=== PATIENT | male | born 1980 | race American Indian/Alaskan Native ===

== ENCOUNTER 2017-03-12 12:22 | Emergency (ER) | payer SELFPAY ==
[2017-03-12 14:11] LABS: Urine Drugs of Abuse Note Disclamer
[2017-03-12 14:24] LABS: Bilirubin,Urine NEG (Negative); Blood,Urine NEG (Negative); Ketones,Urine NEG (Negative); Leukocyte Esterase,Urine NEG (Negative); Mucus,Urine FEW /HPF; Nitrite,Urine NEG (Negative); Urobilinogen,Urine < 2.0 mg/dL (<2.0); WBC,Urine < 1.0 /HPF (0.0-6.0)
[2017-03-12] MEDS ORDERED: MORPHINE IV ONE (14:39)
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
[2017-03-12 15:48] LABS: Basophils % (Auto) 0.6 % (0.0-1.8); Eosinophils % (Auto) 3.5 % (0.0-4.3); Hematocrit 47.3 % (35.5-45.6); Mean Corpuscular HGB Conc 34 % (32-34); Mean Corpuscular Hemoglobin 31 pg (28-32); Mean Corpuscular Volume 92 fl (84-94); Platelet Count 266 K/mm3 (140-440); Red Blood Count 5.15 M/mm3 (3.65-5.03); Red Cell Distribution Width 12.8 % (13.2-15.2); White Blood Count 9.4 K/mm3 (4.5-11.0)
[2017-03-12 15:59] LABS: INR 1.03 (0.87-1.13)
[2017-03-12 16:00] LABS: Partial Thromboplastin Time 32.1 Sec. (24.2-36.6)
[2017-03-12] MEDS ORDERED: NACL ONE (16:05)
[2017-03-12 16:08] LABS: Anion Gap 16 mmol/L; BUN/Creatinine Ratio 16.25; Blood Urea Nitrogen 13 mg/dL (9-20); Calcium 9.1 mg/dL (8.4-10.2); Carbon Dioxide 23 mmol/L (22-30); Chloride 100.3 mmol/L (98-107); Glucose 84 mg/dL (75-100); Potassium 4.1 mmol/L (3.6-5.0); Sodium 135 mmol/L (137-145)
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
[2017-03-12] MEDS ORDERED: PROVENTIL IH ONE (16:52)
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
[2017-03-12 18:33] VITALS: BP 110/74
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
== END 2017-03-12 18:38 | disposition home or self-care (01) ==
LOC: ED 12:22
DX: M79.1 Myalgia (principal); J45.909 Unspecified asthma, uncomplicated; F17.200 Nicotine dependence, unspecified, uncomplicated; Z88.8 Allergy status to other drugs, medicaments and biological substances; Z88.5 Allergy status to narcotic agent; W10.9XXA Fall (on) (from) unspecified stairs and steps, initial encounter; Y93.89 Activity, other specified; Y99.9 Unspecified external cause status; Y92.89 Other specified places as the place of occurrence of the external cause
CPT/HCPCS: 36415; 70450; 71010; 71260; 72125; 74177; 80048; 80307; 81001; 84484; 85025; 85610; 85730; 93005; 93010; 94640; 96374; 99285; J2270; Q9967

== ENCOUNTER 2017-04-24 06:19 | Inpatient (IN) | payer SELFPAY ==
[2017-04-24] MEDS ORDERED: TYLENOL ONE ×2 (06:24→14:10)
[2017-04-24 07:24] LABS: Basophils % (Auto) 0.5 % (0.0-1.8); Hematocrit 46.4 % (35.5-45.6); Hemoglobin 15.4 gm/dl (11.8-15.2); Mean Corpuscular HGB Conc 33 % (32-34); Mean Corpuscular Hemoglobin 31 pg (28-32); Mean Corpuscular Volume 93 fl (84-94); Platelet Count 293 K/mm3 (140-440); Red Blood Count 4.99 M/mm3 (3.65-5.03); Red Cell Distribution Width 12.9 % (13.2-15.2); White Blood Count 11.8 K/mm3 (4.5-11.0)
[2017-04-24 07:32] LABS: INR 0.95 (0.87-1.13)
[2017-04-24 07:34] LABS: Alanine Aminotransferase 20 units/L (7-56); Albumin 4.3 g/dL (3.9-5); Albumin/Globulin Ratio 1.5 %; Alkaline Phosphatase 68 units/L (35-129); Anion Gap 20 mmol/L; Blood Urea Nitrogen 11 mg/dL (9-20); Calcium 9.3 mg/dL (8.4-10.2); Carbon Dioxide 19 mmol/L (22-30); Glucose 102 mg/dL (75-100); Potassium 4.2 mmol/L (3.6-5.0); Sodium 138 mmol/L (137-145); Total Protein 7.2 g/dL (6.3-8.2)
[2017-04-24 07:34] LABS: Bacteria,Urine 1+ /HPF (Negative); Bilirubin,Urine NEG (Negative); Blood,Urine NEG (Negative); Ketones,Urine NEG (Negative); Leukocyte Esterase,Urine NEG (Negative); Mucus,Urine FEW /HPF; Nitrite,Urine NEG (Negative); Protein,Urine <15 mg/dL mg/dL (Negative); Urobilinogen,Urine < 2.0 mg/dL (<2.0)
[2017-04-24] MEDS ORDERED: TYLENOL PO ONE (09:36)
--- NOTE | 2017-04-24 10:01 | XRay Report ---
AP CHEST :04/24/17 06:19:00 CLINICAL: Sepsis. COMPARISON:None. FINDINGS: Normal heart and pulmonary vasculature. The lungs are normally expanded and clear. The bones and soft tissues are normal. IMPRESSION: Normal chest.
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
[2017-04-24] MEDS ORDERED: ROCEPHIN/NS 2 GM/100 ML 2 GM/100 ML BAG IV ONE (11:04)
[2017-04-24] MEDS ORDERED: MORPHINE IV ONE ×2 (11:41→13:24)
[2017-04-24] MEDS ORDERED: ZOFRAN IV ONE (11:41)
--- NOTE | 2017-04-24 12:13 | Cat Scan Report ---
CT HEAD WITHOUT CONTRAST: 04/24/17 06:19:00 CLINICAL: Headache, fever and toothache. TECHNIQUE: 2.5-mm noncontrast scans. COMPARISON:03/12/17 FINDINGS: The ventricles and sulci are normal for age. No abnormal density. No mass or mass effect. No hemorrhage, edema or extra-axial collection. Mild right maxillary sinus mucoperiosteal thickening. Normal orbits and soft tissues. The calvarium and skull base are intact. IMPRESSION: Mild right maxillary sinusitis and otherwise normal.
[2017-04-24] MEDS ORDERED: DILAUDID ONE (13:13)
[2017-04-24] MEDS ORDERED: DILAUDID IV ONE (13:24)
[2017-04-24] MEDS ORDERED: NACL 0.9% 1000 ML 1,000 ML IV ONE (13:25)
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
[2017-04-24] MEDS ORDERED: MILK OF MAGNESIA PO PRN (13:41)
[2017-04-24] MEDS ORDERED: DULCOLAX PR PRN (13:41)
[2017-04-24] MEDS ORDERED: DUONEB 0.5 MG-3 MG/3 ML SOLN IH PRN (13:41)
[2017-04-24] MEDS ORDERED: FLEXERIL PO ONE ×2 (14:03→14:13)
[2017-04-24] MEDS ORDERED: FLEXERIL ONE (14:09)
[2017-04-24] MEDS: TYLENOL PO PRN (14:25)
[2017-04-24] MEDS ORDERED: ZOVIRAX IV SCH (16:00)
[2017-04-24] MEDS ORDERED: VANCOMYCIN PHARMACY TO DOSE IV SCH (16:00)
--- NOTE | 2017-04-24 16:29 | Admit Criteria Form ---
Admission Criteria Documentation: MENINGITIS, BACTERIAL Clinical Indications for Admission to Inpatient Care (Place 'X' for any and all applicable criteria): Admission is indicated for ANY ONE of the following (1)(2)(3)(4)(5): [X ]I. Suspected or proven bacterial meningitis Extended stay beyond goal length of stay may be needed for(13)(14): [ ]a) Bacteremia [ ]b) Persistent fever or neurologic manifestations (eg., altered mental status ) [ ]c) Significant neurologic complications [ ]d) Hemodynamic instability (eg.,sepsis) [ ]e) Significant fluid or electrolyte imbalance [ ]f) Respiratory failure [ ]g) Disseminated intravascular coagulation [ ]h) Acute renal failure [ ]i) Older patients(65 years older) The original [employer] content created by [employer] has been revised. The portions of the content which have been revised are identified through the use of italic text or in bold, and [facility] has neither reviewed nor approved the modified material. All other unmodified content is copyright [employer]. Please see references footnoted in the original [employer] edition 2016 Admission Criteria Met: Yes
[2017-04-24 17:40] LABS: Appearance,CSF TNR
[2017-04-24 17:41] LABS: CSF Diff Status TNR; White Blood Cell,CSF TNR /mm3 (1-10)
[2017-04-24 17:43] LABS: Basophils CSF TNR %; Glucose,CSF TNR mg/dL
[2017-04-24 17:45] LABS: Appearance,CSF Clear
[2017-04-24 17:46] LABS: White Blood Cell,CSF 170 /mm3 (1-10)
[2017-04-24 17:47] LABS: Glucose,CSF 50 mg/dL
[2017-04-24 17:48] LABS: CSF Diff Status Complete
[2017-04-24] MEDS: PERCOCET 5/325 PO PRN (20:49)
[2017-04-24] MEDS: ZOFRAN IV PRN (20:49)
[2017-04-25] MEDS: VANCOMYCIN 1,250 MG in NACL 0.9% 250ML 250 ML IV SCH ×3 (00:47→21:53)
[2017-04-25] MEDS: ROCEPHIN/NS 1 GM/50 ML 1 GM/50 ML BAG IV SCH ×2 (02:40→10:43)
[2017-04-25] MEDS: ZOVIRAX 700 MG in NACL 0.9% 100 ML IV SCH ×5 (03:00→23:03)
[2017-04-25] MEDS: TYLENOL PO PRN (09:47)
[2017-04-25] MEDS: PERCOCET 5/325 PO PRN ×3 (10:40→22:39)
[2017-04-25] MEDS ORDERED: FIORICET PO PRN (14:21)
[2017-04-25 18:19] LABS: HIV-1 Antigen p24 Non React (Non React); HIVR-1/2 Ab Non React (Non React)
--- NOTE | 2017-04-25 18:32 | Progress Note ---
Assessment and Plan 1 Possible viral Meningitis Lumbar Puncture elevated CSF WBC , lymphocyte predominance, follow-up CSF culture Being covered for viral encephalopathy and bacterial meningitis, Started on Acyclovir ,Empiric IV antibiotic started vancomycin and Rocephin Followed blood culture Serial physical exam, Neurology consulted Infectious diseases consulted 2 Sinusitis Patient on IV antibiotic IVF hydration, saline nasal spray as needed 3. Headache Most likely Due to meningitis , treat underlying cause, Tylenol when necessary 4. Cocaine dependence Pt counseled on cessation, risks of continued cocaine abuse including heart attack stroke and sudden where conveyed to the patient. He verbalized understanding. 5. DVT prophylaxis Lovenox Subjective Date of service: 04/25/17 Interval history: Patient has uneventful overnight except headaches. Objective - Constitutional Vitals: Vital Signs - 12hr 04/25/17 07:47 O2 Sat by Pulse 95 Oximetry General appearance: Present: mild distress - EENT Eyes: PERRL ENT: hearing intact - Neck Neck: supple - Respiratory Respiratory effort: normal Respiratory: bilateral: CTA - Breasts Breasts: normal - Cardiovascular Heart rate: 63 Rhythm: regular Heart Sounds: Present: S1 & S2 Extremities: no ischemia - Gastrointestinal General gastrointestinal: Present: soft, non-tender Rectal Exam: deferred - Genitourinary Male genitourinary: deferred - Integumentary Integumentary: clear, warm, dry - Musculoskeletal Musculoskeletal: strength equal bilaterally - Neurologic Neurologic: CNII-XII intact - Psychiatric Psychiatric: memory intact, appropriate mood/affect, intact judgment & insight - Allied health notes Allied health notes reviewed: nursing - Labs CBC & Chem 7: 04/24/17 07:03 04/24/17 07:03
[2017-04-25] MEDS: LOVENOX SUB-Q SCH (22:42)
[2017-04-25] MEDS: ROCEPHIN/NS 2 GM/100 ML 2 GM/100 ML BAG IV SCH (22:54)
[2017-04-26] MEDS ORDERED: MORPHINE IV PRN (00:04)
[2017-04-26] MEDS: ZOVIRAX 700 MG in NACL 0.9% 100 ML IV SCH ×4 (00:16→23:55)
[2017-04-26] MEDS: VANCOMYCIN 1,250 MG in NACL 0.9% 250ML 250 ML IV SCH ×3 (00:54→13:53)
[2017-04-26] MEDS: MORPHINE IV PRN ×4 (00:57→21:30)
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
[2017-04-26] MEDS: ROCEPHIN/NS 2 GM/100 ML 2 GM/100 ML BAG IV SCH ×2 (11:54→21:19)
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
[2017-04-26] MEDS: LOVENOX SUB-Q SCH (21:32)
[2017-04-26] MEDS ORDERED: TAMIFLU PO SCH (22:00)
[2017-04-27] MEDS: VANCOMYCIN 1,250 MG in NACL 0.9% 250ML 250 ML IV SCH ×3 (01:11→23:25)
[2017-04-27] MEDS: PERCOCET 5/325 PO PRN ×2 (01:15→20:32)
[2017-04-27] MEDS ORDERED: FIORICET PO PRN (07:05)
[2017-04-27] MEDS ORDERED: AMBIEN PO PRN ×2 (07:05→22:00)
--- NOTE | 2017-04-27 09:01 | Progress Note ---
Assessment and Plan - Patient Problems (1) Meningitis Current Visit: Yes Status: Acute Plan to address problem: 1. Will discontinue Oseltamivir, otherwise continue current antimicrobials. 2. Await further CSF studies, including cryptococcal antigen test. 3. Will start empiric Fluconazole. 4. Okay to discontinue droplet precautions. (2) Headache Current Visit: Yes Status: Acute Qualifiers: Headache type: unspecified Headache chronicity pattern: acute headache Intractability: intractable Qualified Code(s): R51 - Headache Plan to address problem: 1. Question if now worsened s/p LP. Consider IR recommendations for blood patch epidural. I discussed this with the patient's nurse. 2. Will empirically start high-dose Fluconazole pending further fungal study results. Subjective Date of service: 04/27/17 Principal diagnosis: Meningitis Interval history: Afebrile. Continued headache, now worse than prior to LP. Otherwise, clinically stable. Objective - Constitutional Vitals: Vital Signs Temp Pulse Resp BP Pulse Ox 98.7 F 93 H 20 134/79 99 04/27/17 07:00 04/27/17 07:00 04/27/17 07:00 04/27/17 07:00 04/27/17 07:00 Temperature -Last 24 Hours Temperature 98.7 F Temperature 98.6 F Temperature 99.6 F Temperature 97.7 F Temperature 98 F General appearance: Present: severe distress (pain, lying prone holding his head ) - EENT Eyes: no scleral icterus, no conjunctival injection - Neck Neck: supple - Respiratory Respiratory effort: normal Respiratory: bilateral: CTA, negative: rales, wheezing - Cardiovascular Rhythm: regular Heart Sounds: Present: S1 & S2 Extremities: No edema - Gastrointestinal General gastrointestinal: Present: soft, non-tender, non-distended - Integumentary Integumentary: no jaundice, no rash - Additional findings Additional findings: Microbiology 04/24/17 07:03 Peripheral/Venous Blood Culture - Preliminary NO GROWTH AFTER 72 HOURS 04/24/17 07:32 Peripheral/Venous Blood Culture - Preliminary NO GROWTH AFTER 72 HOURS 04/26/17 18:45 Nasopharyngeal Swab Influenza Types A,B Antigen (MAGNOLIA) - Final 04/24/17 Unknown Urine,Clean Catch Urine Culture - Final 04/24/17 13:42 Cerebral Spinal Fluid CSF Culture - Preliminary 04/24/17 09:47 Throat Group A Streptococcus Rapid Screen - Final 04/24/17 09:47 Throat Group A Strep Throat Culture - Final - Labs CBC & Chem 7: 04/24/17 07:03 04/24/17 07:03
[2017-04-27] MEDS: ZOVIRAX 700 MG in NACL 0.9% 100 ML IV SCH ×2 (09:47→17:19)
[2017-04-27] MEDS: MORPHINE IV PRN ×2 (09:58→17:18)
[2017-04-27] MEDS: ROCEPHIN/NS 2 GM/100 ML 2 GM/100 ML BAG IV SCH ×2 (10:02→21:53)
[2017-04-27] MEDS: DIFLUCAN PO SCH (10:33)
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
[2017-04-27] MEDS: LOVENOX SUB-Q SCH (21:49)
[2017-04-28] MEDS: ZOVIRAX 700 MG in NACL 0.9% 100 ML IV SCH ×3 (00:48→16:40)
[2017-04-28] MEDS: MORPHINE IV PRN ×5 (01:00→22:42)
[2017-04-28 08:38] LABS: Basophils % (Auto) 0.7 % (0.0-1.8); Eosinophils % (Auto) 5.9 % (0.0-4.3); Hematocrit 41.5 % (35.5-45.6); Hemoglobin 14.3 gm/dl (11.8-15.2); Mean Corpuscular HGB Conc 34 % (32-34); Mean Corpuscular Hemoglobin 31 pg (28-32); Mean Corpuscular Volume 90 fl (84-94); Platelet Count 269 K/mm3 (140-440); Red Blood Count 4.59 M/mm3 (3.65-5.03); Red Cell Distribution Width 12.3 % (13.2-15.2); White Blood Count 6.6 K/mm3 (4.5-11.0)
[2017-04-28] MEDS: DIFLUCAN PO SCH (09:42)
[2017-04-28] MEDS: ROCEPHIN/NS 2 GM/100 ML 2 GM/100 ML BAG IV SCH ×2 (09:43→22:42)
--- NOTE | 2017-04-28 11:16 | Progress Note ---
Assessment and Plan - Patient Problems (1) Meningitis Current Visit: Yes Status: Acute Plan to address problem: 1. Question non-infectious etiology. Recommend neurology evaluation. 2. Continue antibiotics and Acyclovir. 3. Will discontinue Fluconazole. (2) Headache Current Visit: Yes Status: Acute Qualifiers: Headache type: unspecified Headache chronicity pattern: acute headache Intractability: intractable Qualified Code(s): R51 - Headache Plan to address problem: Per above re: neurology consultation. Subjective Date of service: 04/28/17 Principal diagnosis: Meningitis Interval history: Patient continues to have a headache, but clarifies repeatedly that his headache is chronic. Objective - Constitutional Vitals: Vital Signs Temp Pulse Resp BP Pulse Ox 97.5 F L 68 16 92/54 97 04/28/17 08:00 04/28/17 08:00 04/28/17 08:00 04/28/17 08:00 04/28/17 08:00 Temperature -Last 24 Hours Temperature 97.5 F Temperature 99.6 F Temperature 99.3 F Temperature 97.8 F Temperature 98.3 F General appearance: Present: no acute distress (appears is less distress due to pain), well-nourished - EENT Eyes: no scleral icterus - Neck Neck: normal ROM ("feels stiff") - Respiratory Respiratory effort: normal Respiratory: bilateral: CTA - Cardiovascular Rhythm: regular Heart Sounds: Present: S1 & S2 Extremities: No edema - Gastrointestinal General gastrointestinal: Present: soft, non-tender, non-distended - Integumentary Integumentary: clear, no jaundice, no rash - Neurologic Neurologic: no focal deficits, moves all extremities - Psychiatric Psychiatric: appropriate mood/affect - Labs CBC & Chem 7: 04/28/17 08:07 04/28/17 16:32 Labs: Abnormal lab results 04/28/17 Range/Units 08:07 RDW 12.3 L (13.2-15.2) % [place] % (Auto) 12.2 H (0.0-7.3) % Eos % (Auto) 5.9 H (0.0-4.3) % Microbiology 04/24/17 13:42 Cerebral Spinal Fluid CSF Culture - Final 04/24/17 13:42 Cerebral Spinal Fluid Cryptococcal Antigen - Final 04/24/17 07:03 Peripheral/Venous Blood Culture - Preliminary NO GROWTH AFTER 4 DAYS 04/24/17 07:32 Peripheral/Venous Blood Culture - Preliminary NO GROWTH AFTER 4 DAYS 04/26/17 18:45 Nasopharyngeal Swab Influenza Types A,B Antigen (MAGNOLIA) - Final 04/24/17 Unknown Urine,Clean Catch Urine Culture - Final 04/24/17 09:47 Throat Group A Streptococcus Rapid Screen - Final 04/24/17 09:47 Throat Group A Strep Throat Culture - Final
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
[2017-04-28] MEDS: VANCOMYCIN 1,250 MG in NACL 0.9% 250ML 250 ML IV SCH ×2 (14:06→20:32)
[2017-04-28] MEDS ORDERED: KIONEX PO PRN (16:09)
[2017-04-28 17:04] LABS: Alanine Aminotransferase 19 units/L (7-56); Albumin 3.6 g/dL (3.9-5); Albumin/Globulin Ratio 1.4 %; Alkaline Phosphatase 54 units/L (35-129); Anion Gap 17 mmol/L; BUN/Creatinine Ratio 14.44; Bilirubin,Total < 0.20 mg/dL (0.1-1.2); Blood Urea Nitrogen 13 mg/dL (9-20); Calcium 8.6 mg/dL (8.4-10.2); Carbon Dioxide 23 mmol/L (22-30); Chloride 105.3 mmol/L (98-107); Glucose 103 mg/dL (75-100); Potassium 3.9 mmol/L (3.6-5.0); Sodium 141 mmol/L (137-145); Total Protein 6.1 g/dL (6.3-8.2)
[2017-04-28] MEDS: PERCOCET 5/325 PO PRN (19:57)
[2017-04-28] MEDS: LOVENOX SUB-Q SCH (21:49)
[2017-04-29] MEDS: ZOVIRAX 700 MG in NACL 0.9% 100 ML IV SCH ×3 (01:33→16:52)
[2017-04-29] MEDS: MORPHINE IV PRN ×5 (02:48→23:04)
[2017-04-29] MEDS: VANCOMYCIN 1,250 MG in NACL 0.9% 250ML 250 ML IV SCH ×3 (03:26→23:02)
[2017-04-29] MEDS: ZOFRAN IV PRN (07:21)
[2017-04-29] MEDS ORDERED: FIORICET PO PRN (09:03)
[2017-04-29] MEDS: ROCEPHIN/NS 2 GM/100 ML 2 GM/100 ML BAG IV SCH (10:22)
--- NOTE | 2017-04-29 10:55 | Progress Note ---
Subjective Date of service: 04/29/17 Principal diagnosis: Meningitis Interval history: Patient seen in hospital room. Laying in bed, visibly uncomfortable. Speaking to patient and getting full story, there is question as to whether or not his pain now is due to original diagnosis of meningitis or whether he is experiencing a dural puncture headache. Patient states that his headache seems to be getting a little better but still pretty severe. He is not experiencing neck stiffness anymore as he was on admission. He has good range of motion of his neck. He also states that when he came to the hospital his headache was located mostly frontal/parietal areas but now seems to be located more in occipital region. He is not experiencing photophobia but is complaining that noises seem to aggrivate the pain. He also says pain is somewhat relieve with laying in bed and worse when he is upright, which is consistant with dural puncture headache. It is possible that his headache is now due to dural puncture and his symptoms will be relieved with blood patch, however we need to know that meningitis is resolved first. He also is not been febrile for a few days now. I would like for infectious disease to clear the patient of his meningitis diagnosis as we cannot do a blood patch until meningiis is resolved. Until that point please continue with symptom treatment with bedrest and prefer fiorcet for pain management. Objective - Constitutional Vitals: Vital Signs - 12hr 04/28/17 04/29/17 04/29/17 22:42 00:00 02:48 Temperature 98.6 F Pulse Rate [ 51 L From Monitor] Pulse Rate [ 51 L Left Radial] Respiratory 16 16 18 Rate Blood Pressure 99/60 [Left Arm] O2 Sat by Pulse 97 Oximetry 04/29/17 04/29/17 04/29/17 04:00 07:21 07:54 Temperature 98.1 F 98.3 F Pulse Rate [ 50 L 51 L From Monitor] Pulse Rate [ 50 L 51 L Left Radial] Respiratory 16 18 18 Rate Blood Pressure 108/54 113/61 [Left Arm] O2 Sat by Pulse 97 98 Oximetry - Labs CBC & Chem 7: 04/28/17 08:07 04/28/17 16:32 Labs: Abnormal lab results 04/28/17 Range/Units 16:32 Glucose 103 H (75-100) mg/dL Total Protein 6.1 L (6.3-8.2) g/dL Albumin 3.6 L (3.9-5) g/dL
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
[2017-04-29] MEDS: LOVENOX SUB-Q SCH (23:03)
[2017-04-30] MEDS: ROCEPHIN/NS 2 GM/100 ML 2 GM/100 ML BAG IV SCH ×3 (00:16→22:30)
[2017-04-30] MEDS: ZOVIRAX 700 MG in NACL 0.9% 100 ML IV SCH ×3 (01:05→16:35)
[2017-04-30] MEDS: VANCOMYCIN 1,250 MG in NACL 0.9% 250ML 250 ML IV SCH ×3 (03:51→20:49)
[2017-04-30] MEDS: MORPHINE IV PRN ×4 (07:45→20:51)
--- NOTE | 2017-04-30 13:19 | Progress Note ---
Assessment and Plan Mr. Willis is a 36-year-old AA male with a history asthma, remote head injury who is admitted with a severe headache and fever to greater than 102 deg F. He was started empirically on high-dose Ceftriaxone, Vancomycin and Acyclovir for presumed meningitis. Head CT showed mild right maxillary sinusitis and Chest XR was unremarkable. HIV is non-reactive. He had LP that showed a marked pleocytosis with a lymphocytic predominance. CSF culture is negative to date. A/P: ID note reviewed and appreciated Meningitis: Viral versus infectious - Lumbar Puncture with elevated CSF WBC , lymphocyte predominance, CSF culture negative - Being covered for viral encephalopathy and bacterial meningitis, - cont on Acyclovir, vancomycin and Rocephin - Infectious diseases following Off antifungal medication Sinusitis - Patient on IV antibiotic - IVF hydration, saline nasal spray as needed Headache - likely 2/2 meningitis vs cocaine withdrawal vs rebound headaches from morphine, treat underlying cause - consulted anesthesia for epidural blood patch Anesthesiologist recommended that he cannot have blood patch unless meningitis is cleared or ruled out Meanwhile we [place] and morphine discontinued and continue on Fioricet as needed for headache Cocaine dependence - Pt counseled on cessation, risks of continued cocaine abuse including heart attack stroke and sudden were conveyed to the patient. He verbalized understanding. DVT prophylaxis on Lovenox Subjective: Patient is awake and alert He had another episode of vomiting this morning per his statement, not reported by RN He denies any dizziness or loss of consciousness or nausea Subjective Date of service: 04/30/17 Principal diagnosis: Meningitis Objective - Exam Narrative Exam: General appearance: Present: other (moderate distress of pain/ headache) - EENT Eyes: Absent: scleral icterus, conjunctival injection ENT: clear oral mucosa, no thrush - Neck Neck: Present: supple. Absent: masses or JVD, cervical LAD - Respiratory Respiratory effort: normal Respiratory: bilateral: CTA, negative: rales, wheezing - Cardiovascular Rhythm: regular Heart Sounds: Present: S1 & S2 - Extremities Extremities: No edema - Abdominal General gastrointestinal: Present: soft, non-tender, non-distended, normal bowel sounds - Integumentary Integumentary: Absent: jaundice, rash (chronic scaly macule on hands) - Psychiatric Psychiatric: appropriate mood/affect - Neurologic Neurologic: no focal deficits, moves all extremities - Constitutional Vitals: Vital Signs - 12hr 04/30/17 04/30/17 04/30/17 07:45 08:00 11:38 Temperature 97.8 F Pulse Rate [ 65 Left Radial] Respiratory 18 16 20 Rate Blood Pressure 102/73 [Left Arm] O2 Sat by Pulse 100 Oximetry 04/30/17 12:00 Temperature 98.7 F Pulse Rate [ 71 Left Radial] Respiratory 18 Rate Blood Pressure 105/58 [Left Arm] O2 Sat by Pulse 98 Oximetry - Labs CBC & Chem 7: 04/28/17 08:07 04/28/17 16:32
[2017-04-30] MEDS: LOVENOX SUB-Q SCH (22:31)
[2017-05-01] MEDS: ZOVIRAX 700 MG in NACL 0.9% 100 ML IV SCH ×2 (00:56→08:45)
[2017-05-01] MEDS: MORPHINE IV PRN ×2 (01:07→12:18)
[2017-05-01] MEDS: VANCOMYCIN 1,250 MG in NACL 0.9% 250ML 250 ML IV SCH ×2 (04:35→13:42)
[2017-05-01 09:13] VITALS: BP 109/60
[2017-05-01] MEDS: ROCEPHIN/NS 2 GM/100 ML 2 GM/100 ML BAG IV SCH (12:43)
--- NOTE | 2017-05-01 13:08 | Progress Note ---
Assessment and Plan - Patient Problems (1) Meningitis Current Visit: Yes Status: Acute Plan to address problem: Patient had a pleocytosis of 150 cells, but sterile cultures. Patient completes an empiric, 7-day course of Vancomycin and Rocephin today. Okay to discontinue antibiotics and discharge to home to follow-up with PCP or neurologist. I discussed the possibility of NSAID-induced meningitis with the patient and advised him to avoid these, e.g. Ibuprofen, Goody's, etc. (2) Headache Current Visit: Yes Status: Acute Qualifiers: Headache type: unspecified Headache chronicity pattern: acute headache Intractability: intractable Qualified Code(s): R51 - Headache Plan to address problem: Chronic issue coursing years. Limit NSAID use. I discussed with primary MD patient's request for narcotic analgesics. Follow-up with PCP and neurologist. Subjective Date of service: 05/01/17 Principal diagnosis: Meningitis Interval history: Continued intermittent headaches, though improved over prior. Otherwise clinically stable. Objective - Constitutional Vitals: Vital Signs Temp Pulse Resp BP Pulse Ox 98.4 F 54 L 20 109/60 98 05/01/17 08:00 05/01/17 08:00 05/01/17 08:00 05/01/17 08:00 05/01/17 08:00 Temperature -Last 24 Hours Temperature 98.4 F Temperature 98.6 F Temperature 98.2 F Temperature 97.5 F General appearance: Present: no acute distress - EENT Eyes: no scleral icterus, no conjunctival injection - Neck Neck: supple - Respiratory Respiratory effort: normal Respiratory: bilateral: CTA - Cardiovascular Rhythm: regular Heart Sounds: Present: S1 & S2 Extremities: No edema - Gastrointestinal General gastrointestinal: Present: non-distended - Integumentary Integumentary: no jaundice, no rash - Neurologic Neurologic: CNII-XII intact, no focal deficits - Psychiatric Psychiatric: appropriate mood/affect - Labs CBC & Chem 7: 04/28/17 08:07 04/28/17 16:32 Labs: Abnormal lab results 04/24/17 Range/Units 13:44 Miscellaneous Test Flexitest 1 H Microbiology 04/24/17 07:03 Peripheral/Venous Blood Culture - Final NO GROWTH AFTER 5 DAYS 04/24/17 07:32 Peripheral/Venous Blood Culture - Final NO GROWTH AFTER 5 DAYS 04/24/17 13:42 Cerebral Spinal Fluid CSF Culture - Final 04/24/17 13:42 Cerebral Spinal Fluid Cryptococcal Antigen - Final 04/26/17 18:45 Nasopharyngeal Swab Influenza Types A,B Antigen (MAGNOLIA) - Final 04/24/17 Unknown Urine,Clean Catch Urine Culture - Final 04/24/17 09:47 Throat Group A Streptococcus Rapid Screen - Final 04/24/17 09:47 Throat Group A Strep Throat Culture - Final
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
== END 2017-05-01 15:24 | disposition home or self-care (01) | DRG 98 ==
LOC: ED 06:19 → 3A 13:42
PROVIDERS: ADMIT Internal Medicine; ATTEND Internal Medicine
DX: G03.0 Nonpyogenic meningitis (principal); F14.20 Cocaine dependence, uncomplicated; J01.00 Acute maxillary sinusitis, unspecified; J45.909 Unspecified asthma, uncomplicated; R51 Headache; Z88.8 Allergy status to other drugs, medicaments and biological substances; Z88.6 Allergy status to analgesic agent; Z93.0 Tracheostomy status; Z71.51 Drug abuse counseling and surveillance of drug abuser
CPT/HCPCS: 36415; 70450; 71010; 80053; 80202; 81001; 82140; 82805; 82947; 84160; 85025; 85610; 86403; 86592; 87040; 87086; 87116; 87400; 87430; 87806; 89051; 93005; 93010; 96361; 96365; 96375; 96376; J0133; J0696; J1170; J1650; J2270; J2405; J3370; J7030; J7050

== ENCOUNTER 2017-10-17 21:10 | Emergency (ER) | payer OTHER ==
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
[2017-10-18] MEDS ORDERED: FLEXERIL PO ONE (04:08)
[2017-10-18] MEDS ORDERED: NORCO 5/325 PO ONE (04:08)
[2017-10-18 05:31] VITALS: BP 118/55
== END 2017-10-18 05:30 | disposition home or self-care (01) ==
LOC: ED 21:10
DX: M54.5 Low back pain (principal); J45.909 Unspecified asthma, uncomplicated; F17.200 Nicotine dependence, unspecified, uncomplicated; Z88.8 Allergy status to other drugs, medicaments and biological substances; V89.2XXA Person injured in unspecified motor-vehicle accident, traffic, initial encounter; Y93.89 Activity, other specified; Y92.89 Other specified places as the place of occurrence of the external cause; Y99.8 Other external cause status
CPT/HCPCS: 99282

== ENCOUNTER 2017-12-25 20:35 | Emergency (ER) | payer SELFPAY ==
[2017-12-25 20:45] VITALS: BP 112/60
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
[2017-12-25 21:48] LABS: Alanine Aminotransferase 17 units/L (7-56); BUN/Creatinine Ratio 21; Basophils % (Auto) 0.4 % (0.0-1.8); Blood Urea Nitrogen 19 mg/dL (9-20); Calcium 8.8 mg/dL (8.4-10.2); Eosinophils # (Auto) 0.2 K/mm3 (0.0-0.4); Eosinophils % (Auto) 2.3 % (0.0-4.3); Hematocrit 43.7 % (35.5-45.6); Hemoglobin 14.5 gm/dl (11.8-15.2); Hemolysis Index 16; Lymphocytes # (Auto) 2.8 K/mm3 (1.2-5.4); Lymphocytes % (Auto) 33.1 % (13.4-35.0); Mean Corpuscular HGB Conc 33 % (32-34); Mean Corpuscular Hemoglobin 32 pg (28-32); Mean Corpuscular Volume 96 fl (84-94); Monocytes # (Auto) 0.7 K/mm3 (0.0-0.8); Monocytes % (Auto) 7.9 % (0.0-7.3); Platelet Count 281 K/mm3 (140-440); Red Blood Count 4.54 M/mm3 (3.65-5.03); Red Cell Distribution Width 13.4 % (13.2-15.2)
--- NOTE | 2017-12-25 22:05 | Cat Scan Report ---
FINAL REPORT PROCEDURE: CT HEAD/BRAIN WO CON TECHNIQUE: Computerized tomography of the head was performed without contrast material. HISTORY: headache COMPARISON: 03/12/2017 FINDINGS: No CT evidence of intracranial mass, hemorrhage, acute territorial infarction, or hydrocephalus. The intracranial arteries are symmetric in density. Calvarium is intact. There is minimal bilateral maxillary sinus mucosal thickening. IMPRESSION: No CT evidence of acute intracranial abnormality. Minimal bilateral maxillary sinus mucosal thickening
[2017-12-25 23:24] LABS: Bilirubin,Urine NEG (Negative); Blood,Urine NEG (Negative); Color,Urine Yellow (Yellow); Protein,Urine <15 mg/dL mg/dL (Negative); Urobilinogen,Urine < 2.0 mg/dL (<2.0); WBC,Urine < 1.0 /HPF (0.0-6.0)
[2017-12-25 23:47] LABS: Amphetamine Screen,Urine PRESUMPTIVE NEGATIVE; Benzodiazepines Screen,Urine PRESUMPTIVE NEGATIVE; Cannabinoid Screen,Urine PRESUMPTIVE NEGATIVE; Methadone Screen,Urine PRESUMPTIVE NEGATIVE; Opiate Screen,Urine PRESUMPTIVE NEGATIVE
[2017-12-26 00:07] LABS: Cocaine Screen,Urine PRESUMPTIVE POSITIVE
== END 2017-12-26 00:33 | disposition home or self-care (01) ==
LOC: ED 20:35
DX: R51 Headache (principal); F14.20 Cocaine dependence, uncomplicated; F17.200 Nicotine dependence, unspecified, uncomplicated
CPT/HCPCS: 36415; 70450; 80053; 80307; 81001; 85025; 99284; G0480; 80320

== ENCOUNTER 2017-12-27 16:18 | Emergency (ER) | payer SELFPAY ==
[2017-12-27] MEDS ORDERED: REGLAN IV ONE (18:11)
[2017-12-27] MEDS ORDERED: NACL 0.9% 500 ML 500 ML IV ONE (18:11)
[2017-12-27] MEDS ORDERED: BENADRYL IV ONE (18:11)
[2017-12-27 18:30] LABS: Basophils % (Auto) 0.5 % (0.0-1.8); Eosinophils # (Auto) 0.2 K/mm3 (0.0-0.4); Eosinophils % (Auto) 2.8 % (0.0-4.3); Hematocrit 44.4 % (35.5-45.6); Hemoglobin 14.9 gm/dl (11.8-15.2); Lymphocytes # (Auto) 2.4 K/mm3 (1.2-5.4); Lymphocytes % (Auto) 31.4 % (13.4-35.0); Mean Corpuscular HGB Conc 34 % (32-34); Mean Corpuscular Hemoglobin 32 pg (28-32); Mean Corpuscular Volume 96 fl (84-94); Monocytes # (Auto) 0.7 K/mm3 (0.0-0.8); Monocytes % (Auto) 8.8 % (0.0-7.3); Platelet Count 279 K/mm3 (140-440); Red Blood Count 4.65 M/mm3 (3.65-5.03); Red Cell Distribution Width 13.1 % (13.2-15.2)
[2017-12-27 18:50] LABS: BUN/Creatinine Ratio 19; Blood Urea Nitrogen 19 mg/dL (9-20); Hemolysis Index 14
[2017-12-27 18:51] LABS: Alanine Aminotransferase < 5 units/L (7-56)
[2017-12-27] MEDS ORDERED: SUBLIMAZE IV ONE (19:00)
--- NOTE | 2017-12-27 19:17 | Cat Scan Report ---
FINAL REPORT PROCEDURE: CT HEAD/BRAIN WO CON TECHNIQUE: Computerized tomography of the head was performed without contrast material. HISTORY: headache COMPARISON: 12/25/2017 FINDINGS: Skull and scalp: Normal. Paranasal sinuses: Small subcentimeter mucous retention cyst or polyp medial right maxillary sinus Ventricles and subarachnoid spaces: Normal. Cerebrum: No evidence of hemorrhage, acute infarction or mass . Cerebellum and brainstem: No evidence of hemorrhage, acute infarction or mass. Vasculature: Normal. Comments: If symptoms persist consider MRI with gradient echo and FLAIR sequences IMPRESSION: No significant or acute disease
[2017-12-27] MEDS ORDERED: REGLAN ONE (20:27)
[2017-12-27] MEDS ORDERED: BENADRYL ONE (20:27)
--- NOTE | 2017-12-27 22:00 | Emergency Department Report ---
HPI - General Chief Complaint: Medical Clearance Time Seen by Provider: 12/27/17 17:28 - HPI HPI: The patient is a 37-year-old male who presents for evaluation of seizure-like activity. The patient is accompanied by his significant other. The report that approximately 2 hours prior to arrival, the patient experienced sudden onset of moderate twitching of the extremities and altered mental status while at home. The patient's significant other states that his symptoms lasted for approximately 1 minute and resolved. The patient complains of a mild achy in quality generalized headache, exacerbated with position changes, improved with resting position. The patient denies fever, head injury, neck pain, neck stiffness, vision or hearing changes, smell or taste changes, paresthesias, facial drooping, slurred speech, urine or bowel incontinence or retention, or other focal neurological deficit. ED Past Medical Hx - Past Medical History Hx Diabetes: No Hx Renal Disease: No Hx Arthritis: No Hx Seizures: No Hx Asthma: Yes Hx HIV: No - Surgical History Additional Surgical History: trach. - Social History Smoking Status: Current Every Day Smoker Substance Use Type: Cocaine - Medications Home Medications: Home Medications Medication Instructions Recorded Confirmed Last Taken Type oxyCODONE /ACETAMINOPHEN [Percocet 1 tab PO Q6HR PRN #6 tablet 03/12/1712/27/17 Rx 5/325] Butalb/Acetamin/Caff 50-325-40 2 tab PO Q4H PRN #14 tablet 12/25/17 12/27/17 Rx [Fioricet] Cyclobenzaprine [Flexeril 10 MG 10 mg PO TID PRN 5 Days #15 tablet 12/25/17 Unknown Rx TAB] ED Review of Systems ROS: Stated complaint: ALTER MENTAL STATUS Other details as noted in HPI Constitutional: denies: fever ENT: denies: throat or neck pain Respiratory: denies: cough, shortness of breath Cardiovascular: denies: chest pain Endocrine: denies unexplained weight loss or gain Gastrointestinal: denies: abdominal pain, nausea Genitourinary: denies: dysuria Musculoskeletal: denies: leg swelling Skin: denies: rash Neurological: reports headache Hematological/Lymphatic: denies: easy bleeding or easy bruising Psych: denies sadness or hopelessness Physical Exam - Physical Exam Vital Signs: Vital Signs 12/27/17 12/27/17 12/27/17 16:27 17:07 17:09 Temperature 98.4 F 97.6 F Pulse Rate 91 H 74 Respiratory 16 14 16 Rate Blood Pressure 129/74 Blood Pressure 94/61 [Left] O2 Sat by Pulse 100 97 96 Oximetry 12/27/17 12/27/17 12/27/17 17:10 17:15 17:30 Temperature Pulse Rate 60 78 75 Respiratory 15 15 15 Rate Blood Pressure 104/65 101/59 Blood Pressure [Left] O2 Sat by Pulse 94 94 Oximetry 12/27/17 12/27/17 17:45 18:00 Temperature Pulse Rate 74 73 Respiratory 15 14 Rate Blood Pressure 107/61 101/59 Blood Pressure [Left] O2 Sat by Pulse 93 96 Oximetry Physical Exam: General: well-nourished, well-developed, no acute distress Head: Normocephalic, atraumatic Eyes: normal sclera, PERRL, EOM intact ENT: Mucous membranes are pale and dry Neck: No neck stiffness, no cervical adenopathy Respiratory: Breath sounds equal bilaterally, no wheezing, rales, or rhonchi Cardio: S1 and S2 present, no murmurs, rubs, gallops, capillary refill is delayed Abdomen: Normoactive bowel sounds, soft abdomen, no rigidity, no guarding or rebound tenderness Chest WALL/Back: No tenderness to palpation of the chest wall, no CVA tenderness with percussion Musc: No pitting edema Skin: No rash Neuro: alert oriented x4, normal cognition, speech normal, no facial drooping, no uvula or tongue deviation on protrusion, no deficit with rotation of neck or shoulder shrug, no obvious gross motor deficit in the upper or lower extremities with flexion or extension at the shoulder, elbow, wrist, hip, knee, or ankle bilaterally, no obvious gross sensation deficit to crude touch or 2 pt discrimination, 2+ symmetric reflexes on DTR testing, no dysmetria, dysdiadochokinesia, no coordination deficit with [id number] or ubpz-cc-[id number] testing, Babinski downgoing, romberg negative Psych: Normal affect ED Course Vital Signs 12/27/17 12/27/17 12/27/17 16:27 17:07 17:09 Temperature 98.4 F 97.6 F Pulse Rate 91 H 74 Respiratory 16 14 16 Rate Blood Pressure 129/74 Blood Pressure 94/61 [Left] O2 Sat by Pulse 100 97 96 Oximetry 12/27/17 12/27/17 12/27/17 17:10 17:15 17:30 Temperature Pulse Rate 60 78 75 Respiratory 15 15 15 Rate Blood Pressure 104/65 101/59 Blood Pressure [Left] O2 Sat by Pulse 94 94 Oximetry 12/27/17 12/27/17 17:45 18:00 Temperature Pulse Rate 74 73 Respiratory 15 14 Rate Blood Pressure 107/61 101/59 Blood Pressure [Left] O2 Sat by Pulse 93 96 Oximetry ED Medical Decision Making - Lab Data Result diagrams: 12/27/17 18:18 12/27/17 18:18 - Medical Decision Making The patient was seen and examined by myself. The patient is placed on a gasoline pump mechanic and continuous pulse ox. On initial evaluation, the patient was found to be in no distress. Evaluation orders were placed. The patient given pain medicine. Lab results are grossly unremarkable. CT scan the head is negative. The patient was monitored for greater than 4 hours without any recurrence of seizure-like activity. The patient was reevaluated and reported that their symptoms were markedly improved. The patient is stable for discharge with outpatient follow-up. The patient is given follow-up and return instructions. The patient expressed understanding and agreed with the plan. The patient is discharged in stable condition. Critical care attestation.: If time is entered above; I have spent that time in minutes in the direct care of this critically ill patient, excluding procedure time. ED Disposition Clinical Impression: Dehydration, Seizure, Acute non intractable tension-type headache Disposition: DC-01 TO HOME OR SELFCARE Is pt being admited?: No Does the pt Need Aspirin: No Condition: Stable Instructions: Epilepsy (ED), New-Onset Seizure in Adults (ED) Referrals: PRIMARY CARE, [Primary Care Provider] - 3-5 Days Time of Disposition: 21:55
[2017-12-27 22:25] VITALS: BP 108/64
== END 2017-12-27 22:27 | disposition home or self-care (01) ==
LOC: ED 16:18
DX: E86.0 Dehydration (principal); G44.209 Tension-type headache, unspecified, not intractable; J45.909 Unspecified asthma, uncomplicated; F17.200 Nicotine dependence, unspecified, uncomplicated
CPT/HCPCS: 36415; 70450; 80053; 82550; 85025; 96374; 96375; 99284; G0480; J1200; J2765; J3010; J7040; 80320

== ENCOUNTER 2018-02-12 15:33 | Emergency (ER) | payer OTHER ==
[2018-02-12 16:12] VITALS: BP 108/55
[2018-02-12] MEDS ORDERED: NORCO 7.5/325 PO ONE (17:57)
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
--- NOTE | 2018-02-12 19:31 | XRay Report ---
FINAL REPORT EXAM: XR SPINE LUMBOSACRAL 2-3V HISTORY: acute low back pain TECHNIQUE: AP, lateral and coned-down views of the lumbar spine PRIORS: None. FINDINGS: The vertebral body heights and disc spaces are well maintained. The alignment is normal. No evidence for spondylolysis or spondylolisthesis is seen. Pedicles are intact bilaterally at all levels. The paraspinal soft tissues are unremarkable. IMPRESSION: Normal lumbar spine.
== END 2018-02-12 20:00 | disposition home or self-care (01) ==
LOC: ED 15:33
DX: M54.5 Low back pain (principal); Z88.6 Allergy status to analgesic agent; Z88.8 Allergy status to other drugs, medicaments and biological substances
CPT/HCPCS: 72100; 99283

== ENCOUNTER 2018-02-24 21:18 | Emergency (ER) | payer SELFPAY ==
[2018-02-24] MEDS ORDERED: TYLENOL PO ONE (22:34)
[2018-02-24] MEDS ORDERED: TYLENOL ONE (22:34)
== END 2018-02-25 00:37 | disposition left against medical advice (07) ==
LOC: ED 21:18
DX: R51 Headache (principal); Z53.21 Procedure and treatment not carried out due to patient leaving prior to being seen by health care provider
CPT/HCPCS: 93005; 93010

== ENCOUNTER 2018-04-18 13:45 | Emergency (ER) | payer SELFPAY ==
[2018-04-18 13:55] VITALS: BP 105/73
[2018-04-18 14:54] LABS: Bilirubin,Urine NEG (Negative); Blood,Urine NEG (Negative); Color,Urine Yellow (Yellow); Mucus,Urine FEW /HPF; Protein,Urine <15 mg/dL mg/dL (Negative); WBC,Urine < 1.0 /HPF (0.0-6.0)
== END 2018-04-18 18:37 ==
LOC: ED 13:45
DX: R10.9 Unspecified abdominal pain (principal); Z53.21 Procedure and treatment not carried out due to patient leaving prior to being seen by health care provider
CPT/HCPCS: 81001

== ENCOUNTER 2018-07-10 10:56 | Emergency (ER) | payer SELFPAY ==
[2018-07-10] MEDS ORDERED: ASPIRIN PO ONE (11:51)
[2018-07-10 12:09] LABS: Basophils % (Auto) 0.4 % (0.0-1.8); Eosinophils % (Auto) 0.4 % (0.0-4.3); Hematocrit 44.2 % (35.5-45.6); Lymphocytes # (Auto) 1.4 K/mm3 (1.2-5.4); Lymphocytes % (Auto) 14.8 % (13.4-35.0); Mean Corpuscular HGB Conc 34 % (32-34); Mean Corpuscular Hemoglobin 32 pg (28-32); Mean Corpuscular Volume 94 fl (84-94); Monocytes # (Auto) 0.6 K/mm3 (0.0-0.8); Monocytes % (Auto) 6.1 % (0.0-7.3); Platelet Count 350 K/mm3 (140-440); Red Blood Count 4.68 M/mm3 (3.65-5.03); Red Cell Distribution Width 13.7 % (13.2-15.2)
[2018-07-10 12:26] LABS: BUN/Creatinine Ratio 14; Blood Urea Nitrogen 13 mg/dL (9-20); Calcium 9.4 mg/dL (8.4-10.2); Hemolysis Index 3
--- NOTE | 2018-07-10 19:28 | Cat Scan Report ---
FINAL REPORT EXAM: CT HEAD/BRAIN WO CON HISTORY: severe headache with facial spasms TECHNIQUE: Standard unenhanced CT of the head at 5.0 millimeter axial increments. PRIORS: CT head 12/27/2017 FINDINGS: The ventricular system is normal in size and configuration. There is no evidence for parenchymal volume loss. There is no evidence for mass lesion, mass effect, midline shift, acute intracranial hemorrhage, or acute ischemia/ infarction. No evidence for acute skull fracture is seen. No abnormality in the overlying scalp soft tissues is seen. Visualized paranasal sinuses are clear. IMPRESSION: Negative CT of the head. No acute intracranial process noted. No change.
[2018-07-11 01:31] VITALS: BP 132/75
[2018-07-11] MEDS ORDERED: IMITREX SUB-Q ONE (04:53)
[2018-07-11] MEDS ORDERED: REGLAN IM ONE (04:53)
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
== END 2018-07-11 05:47 | disposition home or self-care (01) ==
LOC: ED 10:56
DX: R51 Headache (principal); R07.89 Other chest pain; J45.909 Unspecified asthma, uncomplicated; G51.0 Bell's palsy; Z87.891 Personal history of nicotine dependence; Z88.5 Allergy status to narcotic agent; Z88.6 Allergy status to analgesic agent; Z88.1 Allergy status to other antibiotic agents; Z91.09 Other allergy status, other than to drugs and biological substances
CPT/HCPCS: 36415; 70450; 80048; 84484; 85025; 93005; 93010; 96372; 99284; J2765; J3030

== ENCOUNTER 2019-06-10 10:05 | Emergency (ER) | payer SELFPAY ==
[2019-06-10 10:29] VITALS: BP 128/88
[2019-06-10] MEDS ORDERED: NORCO 5/325 PO ONE (10:48)
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
== END 2019-06-10 11:02 | disposition home or self-care (01) ==
LOC: ED 10:05
DX: J01.90 Acute sinusitis, unspecified (principal); J45.909 Unspecified asthma, uncomplicated; Z79.899 Other long term (current) drug therapy; Z88.5 Allergy status to narcotic agent; Z88.8 Allergy status to other drugs, medicaments and biological substances

== ENCOUNTER 2019-06-13 17:15 | Emergency (ER) | payer SELFPAY ==
--- NOTE | 2019-06-13 17:32 | Event Note ---
ED Screening Note Date of service: 06/13/19 Time: 17:30 ED Screening Note: This is a 39 y.o. M. brought in by EMS AMS. Patient continue to point to head and states hurt. Patient seen 2 days ago and discharged with pain medication. This initial assessment/diagnostic orders/clinical plan/treatment(s) is/are subject to change based on patients health status, clinical progression and re- assessment by fellow clinical providers in the ED. Further treatment and workup at subsequent clinical providers discretion. Patient/guardian urged not to elope from the ED as their condition may be serious if not clinically assessed and managed. Initial orders include: Labs and CT of head
[2019-06-13 18:17] LABS: Basophils % (Auto) 0.3 % (0.0-1.8); Eosinophils # (Auto) 0.4 K/mm3 (0.0-0.4); Eosinophils % (Auto) 4.3 % (0.0-4.3); Hematocrit 43.2 % (35.5-45.6); Hemoglobin 14.6 gm/dl (11.8-15.2); Lymphocytes # (Auto) 1.3 K/mm3 (1.2-5.4); Lymphocytes % (Auto) 13.1 % (13.4-35.0); Mean Corpuscular HGB Conc 34 % (32-34); Mean Corpuscular Volume 93 fl (84-94); Monocytes # (Auto) 1.1 K/mm3 (0.0-0.8); Monocytes % (Auto) 10.7 % (0.0-7.3); Platelet Count 564 K/mm3 (140-440); Red Blood Count 4.63 M/mm3 (3.65-5.03); Red Cell Distribution Width 12.7 % (13.2-15.2)
[2019-06-13 18:34] LABS: BUN/Creatinine Ratio 10; Blood Urea Nitrogen 11 mg/dL (9-20); Hemolysis Index 3
--- NOTE | 2019-06-13 18:38 | Cat Scan Report ---
CT head/brain wo con INDICATION / CLINICAL INFORMATION: 39 years Male; AMS and headache. TECHNIQUE: Routine CT head without contrast. All CT scans at this location are performed using CT dos e reduction for ALARA by means of automated exposure control. Motion artifact COMPARISON: FINDINGS: BRAIN / INTRACRANIAL CONTENTS: No acute hemorrhage, mass effect, midline shift, hydrocephalus, or acu te, large territorial infarct. No chronic infarct or focal atrophy. Normal brain volume and ventricul ar/sulcal size for age. No significant white matter abnormality. CRANIOCERVICAL JUNCTION: No significant abnormality. ORBITS: No significant abnormality of visualized orbits. SINUSES / MASTOIDS: Mild to moderate mucosal thickening seen in the ethmoids. Desiccated secretions s een in the right sphenoid sinus. ADDITIONAL FINDINGS: None. IMPRESSION: 1. No focal mass, hemorrhage, hydrocephalus, or acute, large territorial infarct. Signer Name: Artemio Brown MD, III Signed: 06/13/2019 6:34 PM Workstation Name: [id number]
[2019-06-13 19:28] VITALS: BP 141/87
[2019-06-13] MEDS ORDERED: REGLAN IV ONE (21:16)
[2019-06-13] MEDS ORDERED: BENADRYL IV ONE (21:16)
[2019-06-13] MEDS ORDERED: SOLU-Medrol IM ONE (21:16)
[2019-06-13] MEDS ORDERED: FIORICET PO ONE (21:16)
[2019-06-13] MEDS ORDERED: SOLU-Medrol IV ONE (21:57)
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
== END 2019-06-13 23:03 | disposition home or self-care (01) ==
LOC: ED 17:15
DX: R51 Headache (principal); J45.909 Unspecified asthma, uncomplicated; Z98.890 Other specified postprocedural states; Z88.5 Allergy status to narcotic agent; Z88.8 Allergy status to other drugs, medicaments and biological substances; Z88.6 Allergy status to analgesic agent
CPT/HCPCS: 36415; 70450; 80048; 82962; 85025; 93005; 93010; 96374; 96375; 99284; J1200; J2765; J2930

== ENCOUNTER 2019-12-26 07:14 | Emergency (ER) | payer SELFPAY ==
[2019-12-26] MEDS ORDERED: diphenhydrAMINE 50 MG/ML VIAL IV ONE (07:32)
[2019-12-26] MEDS ORDERED: MAGNESIUM SULFATE 2 GM/50 ML BAG IV ONE (07:32)
[2019-12-26] MEDS ORDERED: LIDOCAINE (4%) 40 MG/ML TOPICAL SOLN 50 ML BOTTLE TP ONE (07:32)
[2019-12-26] MEDS ORDERED: METOCLOPRAMIDE 10 MG/2 ML INJ IV ONE (07:32)
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
[2019-12-26 07:58] LABS: Hematocrit 42.6 % (35.5-45.6); Hemoglobin 14.8 gm/dl (11.8-15.2); Mean Corpuscular HGB Conc 35 % (32-34); Mean Corpuscular Volume 93 fl (84-94); Platelet Count 273 K/mm3 (140-440)
[2019-12-26 08:03] LABS: INR 0.95 (0.87-1.13)
[2019-12-26 08:04] LABS: Partial Thromboplastin Time 32.8 Sec. (24.2-36.6)
[2019-12-26 08:11] LABS: Alanine Aminotransferase 15 units/L (7-56); Albumin 4.1 g/dL (3.9-5); BUN/Creatinine Ratio 17; Blood Urea Nitrogen 17 mg/dL (9-20); Calcium 9.1 mg/dL (8.4-10.2); Hemolysis Index 14
[2019-12-26 08:40] LABS: Bacteria,Urine 1+ /HPF (Negative); Bilirubin,Urine NEG (Negative); Blood,Urine NEG (Negative); Color,Urine Yellow (Yellow); Mucus,Urine 3+ /HPF; Protein,Urine <15 mg/dL mg/dL (Negative)
--- NOTE | 2019-12-26 08:46 | Cat Scan Report ---
CT head without contrast INDICATION : headache hx of sz. TECHNIQUE: Axial imaging performed from the skull apex through the skull base without the use of con trast. All CT scans at this location are performed using CT dose reduction for ALARA by means of aut omated exposure control. COMPARISON: CT head from 06/13/2019 FINDINGS: Parenchyma: No acute intracranial hemorrhage or parenchymal abnormality. Ventricles: Ventricles are normal in size and appear symmetric. Soft tissues: Soft tissues including the orbits appear normal. Bones: No acute osseous abnormality. Sinuses: Sinuses and mastoid air cells are clear. IMPRESSION: No acute abnormality. Signer Name: Dick Fisher MD Signed: 12/26/2019 8:42 AM Workstation Name: [id number]
[2019-12-26] MEDS ORDERED: THIAMINE 100 MG in SODIUM CHLORIDE 0.9% 50 ML IV ONE (09:00)
[2019-12-26 09:04] LABS: Amphetamine Screen,Urine PRESUMPTIVE NEGATIVE; Benzodiazepines Screen,Urine PRESUMPTIVE NEGATIVE; Cannabinoid Screen,Urine PRESUMPTIVE NEGATIVE; Cocaine Screen,Urine PRESUMPTIVE NEGATIVE; Methadone Screen,Urine PRESUMPTIVE NEGATIVE; Opiate Screen,Urine PRESUMPTIVE NEGATIVE
[2019-12-26 12:25] VITALS: BP 107/70
== END 2019-12-26 12:24 | disposition home or self-care (01) ==
LOC: ED 07:14
DX: R51 Headache (principal); M54.2 Cervicalgia; R41.82 Altered mental status, unspecified; G40.909 Epilepsy, unspecified, not intractable, without status epilepticus; J45.909 Unspecified asthma, uncomplicated; Z79.2 Long term (current) use of antibiotics; Z79.899 Other long term (current) drug therapy; Z88.5 Allergy status to narcotic agent; Z88.8 Allergy status to other drugs, medicaments and biological substances
CPT/HCPCS: 36415; 70450; 80053; 80307; 81001; 82140; 82550; 84443; 85027; 85610; 85730; 93005; 93010; 96365; 96367; 96375; 99285; J1200; J2765; J3411; J3475; 80320; G0480

== ENCOUNTER 2020-01-16 21:16 | Emergency (ER) | payer SELFPAY ==
[2020-01-16 21:43] VITALS: BP 120/87
[2020-01-17] MEDS ORDERED: dexAMETHasone 20 MG/5 ML VIAL IM ONE (01:56)
[2020-01-17] MEDS ORDERED: ALBUTEROL 2.5 MG/3 ML NEBU IH ONE (01:56)
[2020-01-17] MEDS ORDERED: ACETAMINOPHEN 500 MG TAB PO ONE (01:57)
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
== END 2020-01-17 03:38 | disposition home or self-care (01) ==
LOC: ED 21:16
DX: S16.1XXA Strain of muscle, fascia and tendon at neck level, initial encounter (principal); X58.XXXA Exposure to other specified factors, initial encounter; Y93.89 Activity, other specified; Y92.89 Other specified places as the place of occurrence of the external cause; Y99.8 Other external cause status; J45.909 Unspecified asthma, uncomplicated
CPT/HCPCS: 96372; 99282; J1100

== ENCOUNTER 2020-03-28 21:49 | Emergency (ER) | payer SELFPAY ==
[2020-03-28] MEDS ORDERED: IPRATROPIUM 0.02% NEBU 2.5 ML IH ONE ×3 (22:02→22:04)
[2020-03-28] MEDS ORDERED: ALBUTEROL 2.5 MG/3 ML NEBU IH ONE ×3 (22:02→22:05)
[2020-03-28] MEDS ORDERED: methylPREDNISolone Sod Succinate 125 MG/2 ML INJ IV ONE (22:03)
[2020-03-28] MEDS ORDERED: MAGNESIUM SULFATE 2 GM/50 ML BAG IV ONE (22:03)
[2020-03-28] MEDS ORDERED: SODIUM CHLORIDE 0.9% 1000 ML 1,000 ML IV ONE (22:03)
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
[2020-03-29 01:30] VITALS: BP 114/79
== END 2020-03-29 01:40 | disposition home or self-care (01) ==
LOC: ED 21:49
DX: J45.901 Unspecified asthma with (acute) exacerbation (principal); Z79.899 Other long term (current) drug therapy; Z98.890 Other specified postprocedural states; Z88.6 Allergy status to analgesic agent; Z88.8 Allergy status to other drugs, medicaments and biological substances
CPT/HCPCS: 94644; 96374; 96375; 99283; J2930; J3475; J7030

== ENCOUNTER 2020-04-11 01:26 | Emergency (ER) | payer SELFPAY ==
[2020-04-11 01:44] VITALS: BP 104/70
[2020-04-11] MEDS ORDERED: ACETAMINOPHEN 500 MG TAB PO ONE (02:00)
[2020-04-11] MEDS ORDERED: methylPREDNISolone Sod Succinate 125 MG/2 ML INJ IM ONE (02:00)
[2020-04-11] MEDS ORDERED: ALBUTEROL 2.5 MG/3 ML NEBU IH ONE (02:00)
--- NOTE | 2020-04-11 02:29 | XRay Report ---
CHEST 2 VIEWS 04/11/2020 1:19 AM INDICATION / CLINICAL INFORMATION: Difficulty breathing. COMPARISON: One view of the chest from 04/09/2020. FINDINGS: SUPPORT DEVICES: None. HEART / MEDIASTINUM: No significant abnormality. LUNGS / PLEURA: Increased bilateral perihilar opacities are noted with bilateral bronchial thickening . The lungs are otherwise clear. No significant pleural effusion or pneumothorax. ADDITIONAL FINDINGS: No significant additional findings. IMPRESSION: Findings suggestive of bronchitis or exacerbation of reactive airway disease. Please correlate with c linical findings. Signer Name: Arvin Galicia MD Signed: 04/11/2020 2:24 AM Workstation Name: [id number]
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
== END 2020-04-11 03:40 | disposition home or self-care (01) ==
LOC: ED 01:26
DX: J45.901 Unspecified asthma with (acute) exacerbation (principal); J20.9 Acute bronchitis, unspecified; J06.9 Acute upper respiratory infection, unspecified; M62.830 Muscle spasm of back; Z79.899 Other long term (current) drug therapy; Z88.6 Allergy status to analgesic agent; Z88.8 Allergy status to other drugs, medicaments and biological substances; Z86.69 Personal history of other diseases of the nervous system and sense organs; Z98.890 Other specified postprocedural states; Z87.891 Personal history of nicotine dependence
CPT/HCPCS: 71046; 94640; 96372; 99283; J2930

== ENCOUNTER 2020-06-18 07:19 | Emergency (ER) | payer SELFPAY ==
[2020-06-18] MEDS ORDERED: ALBUTEROL 2.5 MG/3 ML NEBU IH ONE ×2 (07:58→08:00)
[2020-06-18] MEDS ORDERED: IPRATROPIUM 0.02% NEBU 2.5 ML IH ONE ×2 (07:58→08:00)
[2020-06-18] MEDS ORDERED: MAGNESIUM SULFATE 2 GM/50 ML BAG IV ONE (08:00)
[2020-06-18] MEDS ORDERED: methylPREDNISolone Sod Succinate 125 MG/2 ML INJ IV ONE (08:00)
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
--- NOTE | 2020-06-18 09:29 | XRay Report ---
CHEST 1 VIEW INDICATION: sob COMPARISON: 04/09/2020 FINDINGS: Support devices: None Heart: Normal and unchanged Lungs/Pleura: Perihilar parenchymal disease has now come slightly more prominent in the right lower l nataly. No pleural fluid or pneumothorax. IMPRESSION: 1. Slight worsening of the parenchymal disease in the right lower lung. Signer Name: Allan Cuello MD Signed: 06/18/2020 9:24 AM Workstation Name: [id number]
[2020-06-18] MEDS ORDERED: HYDROcodone/ACETAMINOPHEN 5-325 MG TAB PO ONE (09:53)
[2020-06-18 10:55] VITALS: BP 104/62
== END 2020-06-18 11:00 | disposition home or self-care (01) ==
LOC: ED 07:19
DX: J44.1 Chronic obstructive pulmonary disease with (acute) exacerbation (principal); Z86.69 Personal history of other diseases of the nervous system and sense organs; Z79.899 Other long term (current) drug therapy
CPT/HCPCS: 71045; 94640; 96365; 96375; 99284; J2930; J3475; 94644

== ENCOUNTER 2020-08-27 09:39 | Emergency (ER) | payer SELFPAY ==
[2020-08-27] MEDS ORDERED: IPRATROPIUM/ALBUTEROL SULFATE 3 ML AMPUL.NEB IH ONE (09:45)
[2020-08-27] MEDS ORDERED: SODIUM CHLORIDE 0.9% 1000 ML 1,000 ML IV ONE (09:53)
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
--- NOTE | 2020-08-27 10:07 | XRay Report ---
CHEST 1 VIEW INDICATION: Dyspnea. COMPARISON: 06/18/2020 FINDINGS: Support devices: None. Heart: Within normal limits. Lungs/Pleura: No acute air space or interstitial disease. Additional findings: None. IMPRESSION: No acute findings. Signer Name: Hong Hilario Jr, MD Signed: 08/27/2020 10:03 AM Workstation Name: [id number]
[2020-08-27 10:20] LABS: Basophils # (Auto) 0.1 K/mm3 (0.0-0.1); Basophils % (Auto) 0.5 % (0.0-1.8); Eosinophils # (Auto) 0.8 K/mm3 (0.0-0.4); Eosinophils % (Auto) 5.8 % (0.0-4.3); Hematocrit 41.8 % (35.5-45.6); Hemoglobin 13.9 gm/dl (11.8-15.2); Lymphocytes # (Auto) 2.7 K/mm3 (1.2-5.4); Lymphocytes % (Auto) 19.5 % (13.4-35.0); Mean Corpuscular HGB Conc 33 % (32-34); Mean Corpuscular Volume 93 fl (84-94); Monocytes # (Auto) 1.4 K/mm3 (0.0-0.8); Monocytes % (Auto) 10.7 % (0.0-7.3); Platelet Count 328 K/mm3 (140-440); Red Cell Distribution Width 14.1 % (13.2-15.2)
[2020-08-27 10:34] LABS: Creatine Kinase MB 2.5 ng/mL (0.0-4.0)
[2020-08-27 10:35] LABS: Alanine Aminotransferase 25 units/L (7-56); Albumin 4.1 g/dL (3.9-5)
[2020-08-27 10:36] LABS: Bilirubin,Direct < 0.2 mg/dL (0-0.2)
[2020-08-27 10:36] LABS: BUN/Creatinine Ratio 9; Blood Urea Nitrogen 13 mg/dL (9-20); Calcium 9.3 mg/dL (8.4-10.2); Hemolysis Index 7
[2020-08-27] MEDS ORDERED: ALBUTEROL 2.5 MG/3 ML NEBU IH ONE ×2 (10:45→10:47)
[2020-08-27] MEDS ORDERED: methylPREDNISolone Sod Succinate 125 MG/2 ML INJ IV NR (10:50)
[2020-08-27] MEDS ORDERED: MAGNESIUM SULFATE 1 GM in SODIUM CHLORIDE 0.9% 50 ML IV NR (10:51)
--- NOTE | 2020-08-27 13:21 | Event Note ---
40-year-old man presents to ED for evaluation of shortness of breath. Patient found to have asthma exacerbation suspected to be elicited by ingestion of cocaine. Patient treated with supplemental oxygen and steroid therapy with resolution of symptoms. Patient medically optimized and back to usual state of health. Patient subsequently discharged home instructed to follow-up with [facility] care physician within 1 week for further care and evaluation. Patient counseled regarding abstinence from cocaine and avoidance of asthma triggers. ED Physical Exam - General Limitations: Physical Limitation General appearance: other (Some increased work of breathing noted) - Head Head exam: Present: atraumatic, normocephalic - Eye Eye exam: Present: normal appearance. Absent: scleral icterus - ENT ENT exam: Present: mucous membranes moist - Neck Neck exam: Present: normal inspection - Respiratory Respiratory exam: Present: Clear to auscultation (Bilateral), no accessory muscle use - Cardiovascular Cardiovascular Exam: Present: regular rate, normal rhythm. Absent: systolic murmur, diastolic murmur, rubs, gallop - GI/Abdominal GI/Abdominal exam: Present: soft, normal bowel sounds. Absent: distended, tenderness, guarding, rebound, rigid - Rectal Rectal exam: Present: deferred - Extremities Exam Extremities exam: Present: normal inspection - Back Exam Back exam: Present: normal inspection - Neurological Exam Neurological exam: Present: alert, oriented X3, CN II-XII intact (As testable). Absent: motor sensory deficit - Psychiatric Psychiatric exam: Present: anxious, flat affect - Skin Skin exam: Present: warm, dry, intact, normal color. Absent: rash
[2020-08-27 14:51] VITALS: BP 112/53
== END 2020-08-27 16:40 | disposition admitted as inpatient to this hospital (09) ==
LOC: ED 09:39
DX: J45.902 Unspecified asthma with status asthmaticus (principal); N18.30 Chronic kidney disease, stage 3 unspecified; F14.10 Cocaine abuse, uncomplicated; Z86.69 Personal history of other diseases of the nervous system and sense organs; Z98.890 Other specified postprocedural states; Z88.8 Allergy status to other drugs, medicaments and biological substances; Z88.6 Allergy status to analgesic agent; Z87.891 Personal history of nicotine dependence; Z79.899 Other long term (current) drug therapy
CPT/HCPCS: 36415; 71045; 80048; 80076; 82550; 82553; 83735; 85025; 93005; 94640; 96361; 96365; 96366; 99284; J3475; J7030; 94644

== ENCOUNTER 2020-09-19 16:33 | Emergency (ER) | payer SELFPAY ==
--- NOTE | 2020-09-19 18:16 | Event Note ---
ED Screening Note ED Screening Note: SOB that began yesterday +cough no fever no n/v/d PMHx asthma, chronic back pain been doing 3-4 treatments a day allergy: flovent, codeine, ibuprofen, tramadol no sick contacts no recent travel This initial assessment/diagnostic orders/clinical plan/treatment(s) is/are subject to change based on patients health status, clinical progression and re- assessment by fellow clinical providers in the ED. Further treatment and workup at subsequent clinical providers discretion. Patient/guardian urged not to elope from the ED as their condition may be serious if not clinically assessed and managed. Initial orders include: CXR neb tx steroids
[2020-09-19] MEDS ORDERED: IPRATROPIUM 0.02% NEBU 2.5 ML IH ONE (18:17)
[2020-09-19] MEDS ORDERED: ALBUTEROL 2.5 MG/3 ML NEBU IH ONE (18:17)
[2020-09-19] MEDS ORDERED: dexAMETHasone 20 MG/5 ML VIAL IM ONE (18:17)
--- NOTE | 2020-09-19 19:01 | XRay Report ---
Chest 2 views INDICATION: Cough with dyspnea IMPRESSION: There is persistent and perhaps worsening bilateral bronchial wall thickening bilaterally concerning for bronchitis, possibly chronic. No acute airspace disease is identified to suggest pneu monia. No pleural effusion. The heart size is normal. Signer Name: Wolf Conrad MD Signed: 09/19/2020 6:57 PM Workstation Name: [id number]
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
[2020-09-19 23:40] VITALS: BP 117/80
== END 2020-09-19 22:40 | disposition home or self-care (01) ==
LOC: ED 16:33
DX: J45.901 Unspecified asthma with (acute) exacerbation (principal); G40.909 Epilepsy, unspecified, not intractable, without status epilepticus; Z79.2 Long term (current) use of antibiotics; Z79.899 Other long term (current) drug therapy; Z88.8 Allergy status to other drugs, medicaments and biological substances
CPT/HCPCS: 71046; 94640; 96372; 99284; J1100

== ENCOUNTER 2021-01-30 22:33 | Emergency (ER) | payer SELFPAY ==
[2021-01-30] MEDS ORDERED: SODIUM CHLORIDE 0.9% 1000 ML 1,000 ML IV ONE (22:41)
[2021-01-30] MEDS ORDERED: NALOXONE 0.4 MG/1 ML INJ IV PRN (22:41)
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
--- NOTE | 2021-01-30 23:46 | Cat Scan Report ---
CT HEAD WITHOUT CONTRAST INDICATION / CLINICAL INFORMATION: ams. mcduffie. TECHNIQUE: All CT scans at this location are performed using CT dose reduction for ALARA by means of automated exposure control. COMPARISON: CT scan dated 12/12/2020 FINDINGS: HEMORRHAGE: None. EXTRA-AXIAL SPACES: Normal in size and morphology for the patient's age. VENTRICULAR SYSTEM: Normal in size and morphology for the patient's age. CEREBRAL PARENCHYMA: No significant abnormality. No acute territorial infarct. MIDLINE SHIFT / HERNIATION: None. CEREBELLUM / BRAINSTEM: No significant abnormality. ORBITS: Normal as visualized. SOFT TISSUES: No significant abnormality. SKULL: No significant abnormality. PARANASAL SINUSES / MASTOID AIR CELLS: Unchanged ADDITIONAL FINDINGS: None. IMPRESSION: 1. No acute intracranial abnormality. Signer Name: Royal Weller MD Signed: 01/30/2021 11:41 PM Workstation Name: [id number]
[2021-01-30 23:54] LABS: Basophils % (Auto) 0.4 % (0.0-1.8); Eosinophils # (Auto) 0.2 K/mm3 (0.0-0.4); Eosinophils % (Auto) 1.9 % (0.0-4.3); Hematocrit 39.6 % (35.5-45.6); Hemoglobin 13.4 gm/dl (11.8-15.2); Lymphocytes # (Auto) 2.7 K/mm3 (1.2-5.4); Lymphocytes % (Auto) 24.1 % (13.4-35.0); Mean Corpuscular HGB Conc 34 % (32-34); Mean Corpuscular Volume 90 fl (84-94); Monocytes # (Auto) 1.2 K/mm3 (0.0-0.8); Monocytes % (Auto) 10.6 % (0.0-7.3); Platelet Count 301 K/mm3 (140-440); Red Blood Count 4.39 M/mm3 (3.65-5.03); Red Cell Distribution Width 13.9 % (13.2-15.2)
[2021-01-31 00:23] LABS: Alanine Aminotransferase 16 units/L (7-56); Albumin 4.3 g/dL (3.9-5); BUN/Creatinine Ratio 20; Blood Urea Nitrogen 22 mg/dL (9-20); Calcium 8.8 mg/dL (8.4-10.2); Hemolysis Index 2
[2021-01-31 01:33] LABS: Bilirubin,Urine NEG (Negative); Blood,Urine NEG (Negative); Color,Urine Yellow (Yellow); Mucus,Urine FEW /HPF; Protein,Urine <15 mg/dL mg/dL (Negative); Urobilinogen,Urine < 2.0 mg/dL (<2.0)
[2021-01-31 01:50] LABS: Amphetamine Screen,Urine PRESUMPTIVE NEGATIVE; Benzodiazepines Screen,Urine PRESUMPTIVE NEGATIVE; Cannabinoid Screen,Urine PRESUMPTIVE NEGATIVE; Cocaine Screen,Urine PRESUMPTIVE POSITIVE; Methadone Screen,Urine PRESUMPTIVE NEGATIVE; Opiate Screen,Urine PRESUMPTIVE NEGATIVE
[2021-01-31 03:05] VITALS: BP 102/56
== END 2021-01-31 03:07 | disposition home or self-care (01) ==
LOC: ED 22:33
DX: T50.901A Poisoning by unspecified drugs, medicaments and biological substances, accidental (unintentional), initial encounter (principal); R41.82 Altered mental status, unspecified; J45.909 Unspecified asthma, uncomplicated; Z88.6 Allergy status to analgesic agent; Z88.8 Allergy status to other drugs, medicaments and biological substances; Z79.899 Other long term (current) drug therapy; Z98.890 Other specified postprocedural states; Z86.69 Personal history of other diseases of the nervous system and sense organs; Y92.89 Other specified places as the place of occurrence of the external cause
CPT/HCPCS: 36415; 70450; 80053; 80307; 81001; 85025; 96360; 99284; J7030; 80320; G0480

== ENCOUNTER 2021-02-02 10:04 | Emergency (ER) | payer SELFPAY ==
[2021-02-02] MEDS ORDERED: ONDANSETRON 4 MG ODT TAB PO ONE (10:28)
[2021-02-02] MEDS ORDERED: FAMOTIDINE 20 MG TAB PO ONE (10:28)
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
--- NOTE | 2021-02-02 10:58 | XRay Report ---
CHEST 2 VIEWS INDICATION: SOB. COMPARISON: 12/12/2020 FINDINGS: Support devices: None. Heart: Within normal limits. Lungs: No acute air space or interstitial disease. Pleura: No significant pleural effusion. No pneumothorax. Additional findings: None. IMPRESSION: 1. No acute findings. Signer Name: Declan Mccartney MD Signed: 02/02/2021 10:54 AM Workstation Name: [id number]
[2021-02-02 11:21] LABS: Basophils % (Auto) 0.7 % (0.0-1.8); Eosinophils # (Auto) 0.4 K/mm3 (0.0-0.4); Eosinophils % (Auto) 5.6 % (0.0-4.3); Hemoglobin 12.8 gm/dl (11.8-15.2); Lymphocytes # (Auto) 1.6 K/mm3 (1.2-5.4); Mean Corpuscular HGB Conc 34 % (32-34); Mean Corpuscular Volume 91 fl (84-94); Monocytes # (Auto) 0.8 K/mm3 (0.0-0.8); Monocytes % (Auto) 11.6 % (0.0-7.3); Platelet Count 288 K/mm3 (140-440); Red Blood Count 4.19 M/mm3 (3.65-5.03); Red Cell Distribution Width 13.8 % (13.2-15.2)
[2021-02-02 11:25] LABS: Bilirubin,Urine NEG (Negative); Blood,Urine NEG (Negative); Color,Urine Yellow (Yellow); Mucus,Urine FEW /HPF; Protein,Urine <15 mg/dL mg/dL (Negative); Urobilinogen,Urine < 2.0 mg/dL (<2.0); WBC,Urine < 1.0 /HPF (0.0-6.0)
[2021-02-02 11:33] LABS: Alanine Aminotransferase 41 units/L (7-56); Albumin 3.6 g/dL (3.9-5); Blood Urea Nitrogen 9 mg/dL (9-20); Hemolysis Index 13
[2021-02-02 11:37] LABS: BUN/Creatinine Ratio 13
[2021-02-02 11:43] LABS: Amphetamine Screen,Urine Negative; Benzodiazepines Screen,Urine Negative; Cannabinoid Screen,Urine Negative; Methadone Screen,Urine Negative
[2021-02-02] MEDS ORDERED: ALBUTEROL 2.5 MG/3 ML NEBU IH ONE (12:29)
[2021-02-02] MEDS ORDERED: LACTATED RINGERS 1,000 ML IV ONE (12:29)
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
[2021-02-02 12:47] LABS: Cocaine Screen,Urine PRESUMPTIVE POSITIVE; Opiate Screen,Urine PRESUMPTIVE POSITIVE
--- NOTE | 2021-02-02 13:16 | Cat Scan Report ---
CT abdomen pelvis w con INDICATION: abd pain. TECHNIQUE: CT abdomen and pelvis with IV contrast. All CT scans at this location are performed using CT dose red uction for ALARA by means of automated exposure control. COMPARISON: None available. FINDINGS: The visualized lung bases are clear. The liver, gallbladder, pancreas, adrenal glands, kidneys, and s pleen all appear normal. The appendix is normal. There are no acute bowel abnormalities. There is no abdominal or pelvic adeno neeraj. Visualized osseous structures and measuring no aggressive appearing bone lesions. IMPRESSION: 1. No acute or concerning abnormality in the abdomen or pelvis. Signer Name: Vaibhav Alexander MD Signed: 02/02/2021 1:11 PM Workstation Name: [id number]
[2021-02-02 14:30] VITALS: BP 105/64
--- NOTE | 2021-02-03 10:33 | Electrocardiograph Report ---
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
== END 2021-02-02 14:29 | disposition home or self-care (01) ==
LOC: ED 10:04
DX: M54.5 Low back pain (principal); R10.32 Left lower quadrant pain; F25.0 Schizoaffective disorder, bipolar type; J45.909 Unspecified asthma, uncomplicated; Z88.6 Allergy status to analgesic agent; Z79.899 Other long term (current) drug therapy; Z86.69 Personal history of other diseases of the nervous system and sense organs; Z88.8 Allergy status to other drugs, medicaments and biological substances; Z98.890 Other specified postprocedural states
CPT/HCPCS: 36415; 71046; 74177; 80053; 80307; 81001; 82550; 83690; 84484; 85025; 93005; 96360; 99285; Q9967

== ENCOUNTER 2021-02-24 08:44 | Emergency (ER) | payer SELFPAY ==
[2021-02-24] MEDS ORDERED: ALBUTEROL 2.5 MG/3 ML NEBU IH ONE (09:00)
[2021-02-24] MEDS ORDERED: IPRATROPIUM 0.02% NEBU 2.5 ML IH ONE (09:00)
[2021-02-24] MEDS ORDERED: methylPREDNISolone Sod Succinate 125 MG/2 ML INJ IV ONE (09:11)
[2021-02-24] MEDS ORDERED: MAGNESIUM SULFATE 2 GM/50 ML BAG IV ONE (09:11)
[2021-02-24] MEDS ORDERED: IPRATROPIUM/ALBUTEROL SULFATE 3 ML AMPUL.NEB IH ONE ×2 (09:11→10:24)
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
[2021-02-24] MEDS ORDERED: ACETAMINOPHEN 325 MG TAB PO ONE (10:25)
[2021-02-24] MEDS ORDERED: SODIUM CHLORIDE 0.9% 1000 ML 1,000 ML IV ONE (10:30)
[2021-02-24 11:01] LABS: Basophils # (Auto) 0.1 K/mm3 (0.0-0.1); Basophils % (Auto) 0.8 % (0.0-1.8); Eosinophils # (Auto) 0.6 K/mm3 (0.0-0.4); Eosinophils % (Auto) 7.9 % (0.0-4.3); Hematocrit 39.1 % (35.5-45.6); Hemoglobin 13.1 gm/dl (11.8-15.2); Lymphocytes # (Auto) 2.5 K/mm3 (1.2-5.4); Lymphocytes % (Auto) 30.6 % (13.4-35.0); Mean Corpuscular HGB Conc 34 % (32-34); Mean Corpuscular Volume 91 fl (84-94); Monocytes # (Auto) 1.1 K/mm3 (0.0-0.8); Monocytes % (Auto) 13.5 % (0.0-7.3); Platelet Count 410 K/mm3 (140-440); Red Blood Count 4.28 M/mm3 (3.65-5.03); Red Cell Distribution Width 13.9 % (13.2-15.2)
--- NOTE | 2021-02-24 11:07 | XRay Report ---
CHEST 1 VIEW 02/24/2021 9:57 AM INDICATION / CLINICAL INFORMATION: dyspnea/pain. COMPARISON: 02/02/2021 FINDINGS: SUPPORT DEVICES: None. HEART / MEDIASTINUM: No significant abnormality. LUNGS / PLEURA: No significant pulmonary or pleural abnormality. No pneumothorax. ADDITIONAL FINDINGS: No significant additional findings. IMPRESSION: 1. No acute findings or significant interval change when compared to 02/02/2021. Signer Name: Hayder Jennings MD Signed: 02/24/2021 11:03 AM Workstation Name: [id number]
[2021-02-24 11:16] LABS: Alanine Aminotransferase 9 units/L (7-56); Albumin 3.4 g/dL (3.9-5); BUN/Creatinine Ratio 19; Blood Urea Nitrogen 15 mg/dL (9-20); Calcium 8.5 mg/dL (8.4-10.2); Hemolysis Index 4
[2021-02-24 12:22] VITALS: BP 100/62
== END 2021-02-24 12:32 | disposition home or self-care (01) ==
LOC: ED 08:44
DX: J45.909 Unspecified asthma, uncomplicated (principal); G40.909 Epilepsy, unspecified, not intractable, without status epilepticus; F25.0 Schizoaffective disorder, bipolar type; Z79.899 Other long term (current) drug therapy
CPT/HCPCS: 36415; 71045; 80053; 83735; 85025; 94640; 96365; 96375; 99284; J2930; J3475

== ENCOUNTER 2021-04-02 08:12 | Emergency (ER) | payer SELFPAY ==
[2021-04-02 08:26] VITALS: BP 150/90
[2021-04-02] MEDS ORDERED: ALBUTEROL 2.5 MG/3 ML NEBU IH ONE ×2 (08:29→08:41)
[2021-04-02] MEDS ORDERED: IPRATROPIUM 0.02% NEBU 2.5 ML IH ONE ×2 (08:29→08:41)
[2021-04-02] MEDS ORDERED: predniSONE 20 MG TAB PO ONE (08:39)
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
--- NOTE | 2021-04-02 09:26 | XRay Report ---
CHEST 1 VIEW INDICATION: sob. COMPARISON: 02/24/2021 FINDINGS: Support devices: None. Heart: Within normal limits. Lungs/Pleura: The lungs are mildly hyperinflated but clear. No evidence for consolidation, pleural ef fusion or pneumothorax. Additional findings: None. IMPRESSION: Mild hyperinflation versus good inspiration. No acute process noted. Signer Name: Hong Hilario Jr, MD Signed: 04/02/2021 9:22 AM Workstation Name: [id number]
== END 2021-04-02 10:39 | disposition home or self-care (01) ==
LOC: ED 08:12
DX: J45.901 Unspecified asthma with (acute) exacerbation (principal); G89.29 Other chronic pain; M79.671 Pain in right foot; F31.9 Bipolar disorder, unspecified; F20.9 Schizophrenia, unspecified; Z86.69 Personal history of other diseases of the nervous system and sense organs; Z98.890 Other specified postprocedural states; Z88.8 Allergy status to other drugs, medicaments and biological substances; Z79.899 Other long term (current) drug therapy; Z88.5 Allergy status to narcotic agent
CPT/HCPCS: 71045; 94640; 99283; J7512; 99282

== ENCOUNTER 2021-10-04 17:23 | Observation (INO) | payer SELFPAY ==
[2021-10-04] MEDS ORDERED: dexAMETHasone 20 MG/5 ML VIAL IV ONE (18:08)
[2021-10-04] MEDS ORDERED: MAGNESIUM SULFATE 2 GM/50 ML BAG IV ONE (18:08)
[2021-10-04] MEDS ORDERED: IPRATROPIUM 0.02% NEBU 2.5 ML IH ONE (18:08)
[2021-10-04] MEDS ORDERED: ALBUTEROL 2.5 MG/3 ML NEBU IH ONE (18:08)
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
--- NOTE | 2021-10-04 18:36 | XRay Report ---
CHEST 2 VIEWS INDICATION: cough, sob, wheezing. COMPARISON: 08/02/2021 FINDINGS: Support devices: None. Heart: Within normal limits. Lungs/Pleura: No acute air space or interstitial disease. No significant pleural effusion. IMPRESSION: No acute findings. Signer Name: Tyrone Quiroga MD Signed: 10/04/2021 6:32 PM Workstation Name: [id number]
[2021-10-04] MEDS ORDERED: SODIUM CHLORIDE 0.9% 1000 ML 1,000 ML IV ONE (20:08)
[2021-10-04] MEDS ORDERED: guaiFENesin DM 200/20 MG ORAL LIQD 10 ML PO ONE (20:55)
[2021-10-04 21:35] LABS: Basophils % (Auto) 0.4 % (0.0-1.8); Eosinophils # (Auto) 0.2 K/mm3 (0.0-0.4); Eosinophils % (Auto) 2.8 % (0.0-4.3); Hematocrit 41.6 % (35.5-45.6); Hemoglobin 13.2 gm/dl (11.8-15.2); Lymphocytes # (Auto) 1.1 K/mm3 (1.2-5.4); Lymphocytes % (Auto) 12.1 % (13.4-35.0); Mean Corpuscular HGB Conc 32 % (32-34); Mean Corpuscular Volume 92 fl (84-94); Monocytes # (Auto) 0.5 K/mm3 (0.0-0.8); Monocytes % (Auto) 5.3 % (0.0-7.3); Platelet Count 290 K/mm3 (140-440); Red Blood Count 4.54 M/mm3 (3.65-5.03); Red Cell Distribution Width 13.6 % (13.2-15.2)
[2021-10-04] MEDS ORDERED: HYDROmorphone 1 MG/1 ML INJ IV PRN (21:36)
[2021-10-04] MEDS ORDERED: MORPHINE 2 MG/1 ML INJ IV PRN (21:36)
[2021-10-04] MEDS ORDERED: ACETAMINOPHEN 325 MG TAB PO PRN (21:36)
[2021-10-04] MEDS ORDERED: ALBUTEROL 2.5 MG/3 ML NEBU IH PRN (21:36)
[2021-10-04] MEDS ORDERED: ONDANSETRON 4 MG/2 ML INJ IV PRN (21:36)
[2021-10-04] MEDS ORDERED: NON-FORMULARY EACH (Albuterol Sulfate [Albuterol 0.63% Nebs] 0.63 MG/3 ML Vial.Neb) IH PRN (21:38)
[2021-10-04] MEDS ORDERED: SUMAtriptan SUCCINATE 25 MG TAB PO PRN (21:38)
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
[2021-10-04 21:58] LABS: Alanine Aminotransferase 9 units/L (7-56); Albumin 3.6 g/dL (3.9-5); Blood Urea Nitrogen 11 mg/dL (9-20); Calcium 8.9 mg/dL (8.4-10.2); Hemolysis Index 1
[2021-10-04] MEDS ORDERED: FAMOTIDINE 20 MG TAB PO SCH (22:00)
[2021-10-04] MEDS ORDERED: MONTELUKAST 10 MG TAB PO SCH (22:00)
[2021-10-04 22:26] LABS: BUN/Creatinine Ratio 18
[2021-10-05] MEDS: HEPARIN 5,000 UNIT/1 ML VIAL SUB-Q SCH ×2 (00:56→06:34)
[2021-10-05] MEDS: methylPREDNISolone Sod Succinate 40 MG/1 ML INJ IV SCH ×2 (01:09→05:56)
[2021-10-05] MEDS: IPRATROPIUM/ALBUTEROL SULFATE 3 ML AMPUL.NEB IH SCH ×3 (02:57→13:51)
[2021-10-05 08:53] LABS: Hematocrit 40.4 % (35.5-45.6); Hemoglobin 13.2 gm/dl (11.8-15.2); Mean Corpuscular HGB Conc 33 % (32-34); Mean Corpuscular Volume 91 fl (84-94); Platelet Count 305 K/mm3 (140-440); Red Blood Count 4.44 M/mm3 (3.65-5.03); Red Cell Distribution Width 13.6 % (13.2-15.2)
[2021-10-05 09:13] LABS: Blood Urea Nitrogen 11 mg/dL (9-20); Calcium 8.9 mg/dL (8.4-10.2); Hemolysis Index 2
[2021-10-05 09:14] LABS: BUN/Creatinine Ratio 18
[2021-10-05 09:36] VITALS: BP 146/80
[2021-10-05 09:49] LABS: Total Cells Counted 100
[2021-10-05 09:51] LABS: Ovalocytes Few; Platelet Estimate Consistent w Auto
[2021-10-05] MEDS ORDERED: NON-FORMULARY EACH (Cetirizine Hcl [Zyrtec 10mg Cap] 10 MG Capsule) PO SCH (10:00)
[2021-10-05] MEDS ORDERED: CETIRIZINE 10 MG TAB PO SCH (10:00)
[2021-10-05] MEDS ORDERED: AZITHROMYCIN 250 MG TAB PO NR (10:00)
[2021-10-05] MEDS ORDERED: FLUTICASONE PROPIONATE NASAL SPRAY 16 GM NS SCH (10:00)
[2021-10-06] MEDS ORDERED: AZITHROMYCIN 250 MG TAB PO SCH (10:00)
== END 2021-10-05 14:45 | disposition home or self-care (01) ==
LOC: ED 17:23 → 3A 20:47
PROVIDERS: ADMIT Hospitalist; ATTEND Internal Medicine
DX: J96.01 Acute respiratory failure with hypoxia (principal); J45.902 Unspecified asthma with status asthmaticus; J45.901 Unspecified asthma with (acute) exacerbation; G03.9 Meningitis, unspecified; F31.9 Bipolar disorder, unspecified; F20.9 Schizophrenia, unspecified; R56.9 Unspecified convulsions; Z79.899 Other long term (current) drug therapy; Z98.890 Other specified postprocedural states
CPT/HCPCS: 36415; 71046; 80048; 80053; 85025; 94640; 96361; 96365; 96372; 96375; 96376; 99291; G0378; J1100; J1170; J1644; J2270; J2920; J3475; J7030; 85007; 94644; Q0162

== ENCOUNTER 2021-12-16 21:02 | Inpatient (IN) | payer SELFPAY ==
[2021-12-16] MEDS ORDERED: IPRATROPIUM 0.02% NEBU 2.5 ML IH ONE (21:54)
[2021-12-16] MEDS ORDERED: methylPREDNISolone Sod Succinate 125 MG/2 ML INJ IV ONE (21:54)
[2021-12-16] MEDS ORDERED: MAGNESIUM SULFATE 2 GM/50 ML BAG IV ONE (21:54)
[2021-12-16] MEDS ORDERED: ALBUTEROL 2.5 MG/3 ML NEBU IH ONE (21:54)
--- NOTE | 2021-12-16 21:57 | Event Note ---
ED Screening Note ED Screening Note: 2-3 day history of cough, wheezing and hemoptysis. Current spo2 87% in triage This initial assessment/diagnostic orders/clinical plan/treatment(s) is/are subject to change based on patients health status, clinical progression and re- assessment by fellow clinical providers in the ED. Further treatment and workup at subsequent clinical providers discretion. Patient/guardian urged not to elope from the ED as their condition may be serious if not clinically assessed and managed. Initial orders include: Asthma and hypoxemia protocol
[2021-12-16] MEDS ORDERED: SODIUM CHLORIDE 0.9% 1000 ML 1,000 ML IV ONE (22:13)
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
--- NOTE | 2021-12-16 22:38 | XRay Report ---
CHEST 1 VIEW INDICATION / CLINICAL INFORMATION: Asthma. COMPARISON: Chest x-ray 10/04/2021 FINDINGS: SUPPORT DEVICES: None. HEART / MEDIASTINUM: No significant abnormality. LUNGS / PLEURA: No significant pulmonary or pleural abnormality. No pneumothorax. Lung volumes appear symmetric and ADDITIONAL FINDINGS: No significant additional findings. IMPRESSION: 1. No active cardiopulmonary disease. Signer Name: Hakan Busch II, MD Signed: 12/16/2021 10:34 PM Workstation Name: [id number]
[2021-12-16 22:48] LABS: Basophils % (Auto) 0.4 % (0.0-1.8); Eosinophils # (Auto) 0.6 K/mm3 (0.0-0.4); Eosinophils % (Auto) 6.1 % (0.0-4.3); Hematocrit 37.3 % (35.5-45.6); Hemoglobin 12.5 gm/dl (11.8-15.2); Lymphocytes # (Auto) 2.1 K/mm3 (1.2-5.4); Lymphocytes % (Auto) 21.2 % (13.4-35.0); Mean Corpuscular HGB Conc 33 % (32-34); Mean Corpuscular Volume 91 fl (84-94); Monocytes # (Auto) 1.2 K/mm3 (0.0-0.8); Monocytes % (Auto) 12.5 % (0.0-7.3); Platelet Count 371 K/mm3 (140-440); Red Blood Count 4.12 M/mm3 (3.65-5.03); Red Cell Distribution Width 14.2 % (13.2-15.2)
[2021-12-16 23:01] LABS: Calcium 8.3 mg/dL (8.4-10.2)
[2021-12-16] MEDS ORDERED: LACTATED RINGERS 1,000 ML IV ONE (23:57)
[2021-12-17] MEDS ORDERED: MAGNESIUM HYDROXIDE (MOM) ORAL LIQD UDC PO PRN (00:31)
[2021-12-17] MEDS ORDERED: MORPHINE 2 MG/1 ML INJ IV PRN (00:31)
[2021-12-17] MEDS ORDERED: MORPHINE 4 MG/1 ML INJ IV PRN (00:31)
[2021-12-17] MEDS ORDERED: ACETAMINOPHEN 325 MG TAB PO PRN (00:31)
[2021-12-17] MEDS ORDERED: ONDANSETRON 4 MG/2 ML INJ IV PRN (00:31)
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
[2021-12-17] MEDS ORDERED: SODIUM CHLORIDE 0.9% 1000 ML 1,000 ML IV SCH (00:45)
--- NOTE | 2021-12-17 01:37 | Cat Scan Report ---
CTA CHEST WITH CONTRAST INDICATION / CLINICAL INFORMATION: Shortness of breath, hemoptysis. TECHNIQUE: Axial CT images were obtained through the chest after injection of 100 cc Omnipaque 350 IV contrast. 3 plane MIP and/or 3D reconstructions were produced. All CT scans at this location are per formed using CT dose reduction for ALARA by means of automated exposure control. COMPARISON: None available. FINDINGS: VASCULAR FINDINGS: PULMONARY ARTERY: Pulmonary artery is normal in size. No filling defects are present compatible with pulmonary artery embolus.. THORACIC AORTA: No significant abnormality. CORONARY ARTERY CALCIFICATION: Absent -- None. NONVASCULAR FINDINGS: LOWER NECK:Soft tissues of the lower neck and thyroid demonstrate no significant abnormalities or acu te findings. HEART: No significant abnormality. MEDIASTINUM / YENIFER: No significant abnormality. ESOPHAGUS: No significant abnormality. LYMPH NODES: Minimally enlarged right hilar lymph node measuring 1.4 cm short axis LUNGS: Small thin-walled pulmonary cyst posterior right lower lobe. Scattered foci of groundglass att enuation within the upper lobes which could reflect evidence of infectious or inflammatory process. M inimal bronchial thickening is additionally present bilaterally within the lower lobes and involves a few of the lower lobe subsegmental bronchi. A few of the subsegmental bronchi within the bilateral l ower lobes appear to be opacified with fluid. PLEURA: No pleural effusion. No pneumothorax. THORACIC SOFT TISSUES: No significant abnormality of the chest wall or upper thoracic musculature. BONES: No significant skeletal abnormalities. ADDITIONAL CHEST FINDINGS: None. UPPER ABDOMEN: No significant abnormality. IMPRESSION: 1. No CT evidence for pulmonary embolism. 2. Minimal less attenuation than the upper lobes. Additional bronchial wall thickening involving subs egmental bronchi of the upper and lower lobes is demonstrated with mucous plugging additionally prese nt. Findings suggest component of bronchitis. Signer Name: Hakan Busch II, MD Signed: 12/17/2021 1:32 AM Workstation Name: [id number]
[2021-12-17] MEDS: IPRATROPIUM/ALBUTEROL SULFATE 3 ML AMPUL.NEB IH SCH ×2 (02:30→08:01)
[2021-12-17 04:44] VITALS: BP 109/55
[2021-12-17] MEDS ORDERED: LACTATED RINGERS 1,000 ML IV ONE (04:45)
[2021-12-17] MEDS ORDERED: HEPARIN 5,000 UNIT/1 ML VIAL SUB-Q SCH ×2 (06:00)
[2021-12-17] MEDS ORDERED: methylPREDNISolone Sod Succinate 40 MG/1 ML INJ IV SCH (06:00)
[2021-12-17 06:10] LABS: C-Reactive Protein 7.8 mg/dL (0.00-1.30)
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
== END 2021-12-17 12:28 | disposition home or self-care (01) | DRG 202 ==
LOC: ED 21:02 → IMCU 12-17 00:31
PROVIDERS: ADMIT Internal Medicine Geriatric Medicine; ATTEND Internal Medicine
DX: J45.902 Unspecified asthma with status asthmaticus (principal); N17.0 Acute kidney failure with tubular necrosis; J06.9 Acute upper respiratory infection, unspecified; Z88.8 Allergy status to other drugs, medicaments and biological substances; Z88.5 Allergy status to narcotic agent
CPT/HCPCS: 36415; 71045; 71275; 80048; 83615; 84145; 85025; 85379; 86140; 94640; 94644; 94760; G0378; Q0162; J1644; J1956; J2920; J2930; J3475; J7030; J7120; Q9967; U0003

== ENCOUNTER 2021-12-23 17:11 | Emergency (ER) | payer SELFPAY ==
[2021-12-23] MEDS ORDERED: IPRATROPIUM 0.02% NEBU 2.5 ML IH ONE (22:36)
[2021-12-23] MEDS ORDERED: methylPREDNISolone Sod Succinate 125 MG/2 ML INJ IV ONE (22:36)
[2021-12-23] MEDS ORDERED: ALBUTEROL 2.5 MG/3 ML NEBU IH ONE (22:36)
--- NOTE | 2021-12-23 23:20 | XRay Report ---
XR chest 1V ap INDICATION / CLINICAL INFORMATION: COUGH. COMPARISON: CTA from 12/17/2021 FINDINGS: SUPPORT DEVICES: None. HEART /PULMONARY VASCULATURE: No significant abnormality. LUNGS / PLEURA: There is bronchial wall thickening with mild airspace opacities in the lung bases, pr ogressed from recent CTA. No sizable pleural effusion. No pneumothorax. IMPRESSION: Increased mild bibasilar airspace opacities and lung bases. Findings likely reflect lower airways dis ease/bronchitis with superimposed developing bronchopneumonia. Signer Name: Modesto Harmon MD Signed: 12/23/2021 11:16 PM Workstation Name: [id number]
[2021-12-24] MEDS ORDERED: cefTRIAXone/NS 1 GM/50 ML 1 GM/50 ML BAG IV ONE (00:01)
[2021-12-24] MEDS ORDERED: AZITHROMYCIN 250 MG TAB PO ONE (00:01)
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
[2021-12-24 03:43] VITALS: BP 119/75
== END 2021-12-24 03:45 | disposition home or self-care (01) ==
LOC: ED 17:11 → MERGE 17:11 → ED 12-24 03:45
DX: J45.901 Unspecified asthma with (acute) exacerbation (principal); R06.02 Shortness of breath
CPT/HCPCS: 71045; 94640; 96365; 96375; 99284; J0696; J2930

== ENCOUNTER 2022-03-20 14:12 | Emergency (ER) | payer SELFPAY ==
[2022-03-20 14:25] VITALS: BP 122/69
== END 2022-03-23 02:47 | disposition left against medical advice (07) ==
LOC: ED 14:12
DX: J45.909 Unspecified asthma, uncomplicated (principal); Z53.21 Procedure and treatment not carried out due to patient leaving prior to being seen by health care provider

== ENCOUNTER 2022-03-29 20:45 | Emergency (ER) | payer SELFPAY ==
[2022-03-29] MEDS ORDERED: ALBUTEROL 2.5 MG/3 ML NEBU IH ONE ×2 (21:17→23:11)
[2022-03-29] MEDS ORDERED: methylPREDNISolone Sod Succinate 125 MG/2 ML INJ IV ONE (21:17)
[2022-03-29] MEDS ORDERED: IPRATROPIUM 0.02% NEBU 2.5 ML IH ONE (21:17)
[2022-03-29] MEDS ORDERED: MAGNESIUM SULFATE 2 GM/50 ML BAG IV ONE (21:17)
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
[2022-03-29 21:43] LABS: Basophils % (Auto) 0.3 % (0.0-1.8); Eosinophils # (Auto) 0.9 K/mm3 (0.0-0.4); Eosinophils % (Auto) 8.8 % (0.0-4.3); Hematocrit 40.1 % (35.5-45.6); Hemoglobin 13.4 gm/dl (11.8-15.2); Lymphocytes # (Auto) 1.3 K/mm3 (1.2-5.4); Lymphocytes % (Auto) 12.5 % (13.4-35.0); Mean Corpuscular HGB Conc 33 % (32-34); Mean Corpuscular Volume 93 fl (84-94); Monocytes # (Auto) 0.8 K/mm3 (0.0-0.8); Monocytes % (Auto) 7.6 % (0.0-7.3); Platelet Count 256 K/mm3 (140-440)
--- NOTE | 2022-03-29 21:49 | XRay Report ---
CHEST 1 VIEW 03/29/2022 9:33 PM INDICATION / CLINICAL INFORMATION: Asthma. COMPARISON: 12/23/21. FINDINGS: SUPPORT DEVICES: None. HEART / MEDIASTINUM: The heart size and pulmonary vasculature are normal. LUNGS / PLEURA: No significant pulmonary or pleural abnormality. No pneumothorax. ADDITIONAL FINDINGS: No significant additional findings. IMPRESSION: No acute abnormality or significant change. Signer Name: Hayder Hebert MD Signed: 03/29/2022 9:44 PM Workstation Name: [id number]
[2022-03-29 21:50] LABS: Blood Urea Nitrogen 11 mg/dL (9-20); Calcium 9.5 mg/dL (8.4-10.2); Hemolysis Index 9
[2022-03-29 21:51] LABS: BUN/Creatinine Ratio 16
[2022-03-30 01:36] VITALS: BP 129/83
== END 2022-03-30 02:00 | disposition home or self-care (01) ==
LOC: ED 20:45
DX: J45.909 Unspecified asthma, uncomplicated (principal); R56.9 Unspecified convulsions; F31.9 Bipolar disorder, unspecified; Z91.09 Other allergy status, other than to drugs and biological substances; Z79.899 Other long term (current) drug therapy
CPT/HCPCS: 36415; 71045; 80048; 85025; 94640; 94644; 96365; 96375; 99284; J2930; J3475